=== PATIENT | male | born 1945 | race Caucasian/White ===

== ENCOUNTER 2016-07-26 07:27 | Inpatient (IN) | payer MEDICARE, OTHER ==
[2016-07-26] MEDS ORDERED: IPRATROPIUM/ALBUTEROL 0.5-2.5 MG/3 ML AMPUL NEB ONE ×3 (08:57→08:58)
[2016-07-26] MEDS ORDERED: METHYLPREDNISOLONE INJ 125 MG/2 ML SDV IV ONE (08:58)
[2016-07-26 09:22] LABS: PROTHROMBIN TIME 14.6 SEC (11.4-15.4)
[2016-07-26 09:25] LABS: VENOUS BLOOD BASE EXCESS 3.3 mmol/L; VENOUS BLOOD HCO3 27.8 mmol/L (20-32); VENOUS BLOOD PCO2 41.7 mmHg (35-63); VENOUS BLOOD PH 7.44 (7.30-7.42)
[2016-07-26 09:30] LABS: BLOOD UREA NITROGEN 15 mg/dL (7-20); CALCIUM 9.2 mg/dL (8.4-10.2); CREATININE RESULT 0.61 mg/dL (0.52-1.25); GLUCOSE 252 mg/dL (75-110)
[2016-07-26 09:31] LABS: ALANINE AMINOTRANSFERASE 61 U/L (21-72); ALKALINE PHOSPHATASE 106 U/L (38-126); ANION GAP 12 (5-19); ASPARTATE AMINO TRANSFERASE 58 U/L (17-59); BILIRUBIN,DIRECT 0.4 mg/dL (0.0-0.4); BILIRUBIN,TOTAL 1.3 mg/dL (0.2-1.3); CARBON DIOXIDE 27 mmol/L (22-30); CHLORIDE 97 mmol/L (98-107); POTASSIUM 4.7 mmol/L (3.6-5.0); TOTAL PROTEIN 7.4 g/dL (6.3-8.2)
--- NOTE | 2016-07-26 09:51 | RADIOLOGY REPORT (SQ) ---
EXAM DESCRIPTION: CHEST SINGLE VIEW COMPLETED DATE/TIME: 07/26/2016 9:30 am REASON FOR STUDY: productive cough , sob COMPARISON: Chest CT scan dated November 2009 EXAM PARAMETERS: NUMBER OF VIEWS: One view. TECHNIQUE: Single frontal radiographic view of the chest acquired. RADIATION DOSE: NA LIMITATIONS: None. FINDINGS: LUNGS AND PLEURA: There is some ill-defined increased density in the right lower lung fiel d which may only be related to overlying soft tissues however I cannot exclude a minimal infiltrate. Remaining lung brown are clear. No pleural effusions are identified. MEDIASTINUM AND HILAR STRUCTURES: No masses. Contour normal. HEART AND VASCULAR STRUCTURES: Heart normal in size. Normal vasculature. BONES: No acute findings. HARDWARE: None in the chest. OTHER: No other significant finding. IMPRESSION: Ill-defined increased density in the right lower lung field as noted above which may onl y be related to overlying soft tissues however I cannot exclude a minimal infiltrate. Remaining lung brown are clear. Other findings as noted above TECHNICAL DOCUMENTATION: JOB ID: [id number]
--- NOTE | 2016-07-26 09:52 | EKG REPORT ---
SEVERITY:- ABNORMAL ECG - SINUS RHYTHM RBBB AND LAFB : Confirmed by: Sveta Whitlock 26-Jul-2016 09:51:47
[2016-07-26] MEDS ORDERED: LEVOFLOXACIN 500 MG/D5W RTU 100 ML IV ONE (10:03)
[2016-07-26 10:13] LABS: ABSOLUTE EOSINOPHILS # (AUTO) 0.2 10^3/uL (0.0-0.6); ABSOLUTE LYMPHOCYTES (AUTO) 0.6 10^3/uL (0.5-4.7); ABSOLUTE MONOCYTES (AUTO) 0.4 10^3/uL (0.1-1.4); ABSOLUTE NEUT (AUTO) 2.8 10^3/uL (1.7-8.2); BASOPHILS % (AUTO) 0.4 % (0-2); EOSINOPHILS % (AUTO) 4.2 % (0-6); HEMATOCRIT 43.2 % (37.9-51.0); HEMOGLOBIN 14.4 g/dL (13.5-17.0); LYMPHOCYTES % (AUTO) 14.2 % (13-45); MEAN CORPUSCULAR HEMOGLOBIN 29.6 pg (27.0-33.4); MEAN CORPUSCULAR HGB CONC 33.4 g/dL (32.0-36.0); MEAN CORPUSCULAR VOLUME 89 fl (80-97); MONOCYTES % (AUTO) 9.2 % (3-13); RED BLOOD COUNT 4.88 10^6/uL (4.35-5.55); RED CELL DISTRIBUTION WIDTH 14.8 % (11.5-14.0); WHITE BLOOD COUNT 3.9 10^3/uL (4.0-10.5)
--- NOTE | 2016-07-26 10:24 | ER Document Report ---
ED General - General Chief Complaint: Breathing Difficulty Stated Complaint: SHORTNESS OF BREATH Time Seen by Provider: 07/26/16 08:26 Mode of Arrival: Ambulatory Information source: Patient Notes: 71-year-old male history of COPD presents with complaints of shortness of breath over the past week with productive thick yellow greenish sputum. Patient states he cannot walk more than a few steps because before he becomes tired TRAVEL OUTSIDE OF THE [place] IN LAST 30 DAYS: No - HPI Onset: Last week Onset/Duration: Persistent Quality of pain: Achy Severity: Mild Pain Level: 1 Associated symptoms: Productive cough, Fever, Shortness of breath Exacerbated by: Walking, Coughing Relieved by: Denies Similar symptoms previously: Yes Recently seen / treated by doctor: Yes - Related Data Allergies/Adverse Reactions: No Known Allergies Allergy (Verified 07/26/16 07:37) Past Medical History - Social History Smoking Status: Former Smoker Cigarette use (# per day): No Chew tobacco use (# tins/day): No Smoking Education Provided: No Frequency of alcohol use: None Drug Abuse: None Family History: Reviewed & Not Pertinent Patient has suicidal ideation: No Patient has homicidal ideation: No - Past Medical History Cardiac Medical History: Reports: Hx Hypertension Pulmonary Medical History: Reports: Hx Bronchitis, Hx COPD, Hx Pneumonia Endocrine Medical History: Reports: Hx Diabetes Mellitus Type 2 Renal/ Medical History: Denies: Hx Peritoneal Dialysis - Immunizations Hx Diphtheria, Pertussis, Tetanus Vaccination: Yes Review of Systems - Review of Systems Notes: REVIEW OF SYSTEMS: CONSTITUTIONAL : Denies fever, chills, or sweats. Denies recent illness. EENT: Denies eye, ear, throat, or mouth pain or symptoms. Denies nasal or sinus congestion or discharge. Denies throat, tongue, or mouth swelling or difficulty swallowing. CARDIOVASCULAR: Denies chest pain. Denies palpitations or racing or irregular heart beat. Denies ankle edema. RESPIRATORY: productive cough shortness of breath GASTROINTESTINAL: Denies abdominal pain or distention. Denies nausea, vomiting , or diarrhea. Denies blood in vomitus, stools, or per rectum. Denies black, tarry stools. Denies constipation. GENITOURINARY: Denies difficulty urinating, painful urination, burning, frequency, blood in urine, or discharge. MUSCULOSKELETAL: Denies back or neck pain or stiffness. Denies joint pain or swelling. SKIN: Denies rash, lesions or sores. HEMATOLOGIC : Denies easy bruising or bleeding. LYMPHATIC: Denies swollen, enlarged glands. NEUROLOGICAL: Denies confusion or altered mental status. Denies passing out or loss of consciousness. Denies dizziness or lightheadedness. Denies headache. Denies weakness or paralysis or loss of use of either side. Denies problems with gait or speech. Denies sensory loss, numbness, or tingling. Denies seizures. PSYCHIATRIC: Denies anxiety or stress. Denies depression, suicidal ideation, or homicidal ideation. ALL OTHER SYSTEMS REVIEWED AND NEGATIVE. Dictation was performed using [email or web address] voice recognition software PHYSICAL EXAMINATION: GENERAL: Well-appearing, well-nourished and in no acute distress. HEAD: Atraumatic, normocephalic. EYES: Pupils equal round and reactive to light, extraocular movements intact, sclera anicteric, conjunctiva are normal. ENT: Nares patent, oropharynx clear without exudates. Moist mucous membranes. NECK: Normal range of motion, supple without lymphadenopathy LUNGS: Coarse rhonchi at the right base wheezing all throughout HEART: Regular rate and rhythm without murmurs ABDOMEN: Soft, nontender, nondistended abdomen. No guarding, no rebound. No masses appreciated. Musculoskeletal: Normal range of motion, no pitting or edema. No cyanosis. NEUROLOGICAL: Cranial nerves grossly intact. Normal speech, normal gait. Normal sensory, motor exams PSYCH: Normal mood, normal affect. SKIN: Warm, Dry, normal turgor, no rashes or lesions noted. Physical Exam - Vital signs Vitals: Temp Pulse Resp BP Pulse Ox 98.8 F 96 24 H 147/72 H 94 07/26/16 07:37 07/26/16 07:37 07/26/16 07:37 07/26/16 07:37 07/26/16 07:37 Course - Re-evaluation Re-evalutation: 07/26/16 10:23 RLL infiltrate noted, pt is on o2, cant ambulate without becoming hypoxic - Vital Signs Vital signs: Temp Pulse Resp BP Pulse Ox 98.8 F 96 16 134/74 H 96 07/26/16 07:37 07/26/16 07:37 07/26/16 10:01 07/26/16 10:01 07/26/16 10:01 - Laboratory Result Diagrams: 07/26/16 08:51 07/26/16 08:51 Laboratory results interpreted by me: 07/26/16 07/26/16 08:51 09:04 VBG pH 7.44 H Sodium 136.0 L Chloride 97 L Glucose 252 H
[2016-07-26 12:47] LABS: APPEARANCE,URINE CLEAR; BILIRUBIN,URINE NEGATIVE (NEGATIVE); GLUCOSE, URINE 50 mg/dL (NEGATIVE); KETONES,URINE NEGATIVE (NEGATIVE); LEUKOCYTE ESTERASE,URINE NEGATIVE (NEGATIVE); NITRITE,URINE NEGATIVE (NEGATIVE); PROTEIN,URINE NEGATIVE (NEGATIVE); URINE SPECIFIC GRAVITY 1.021
[2016-07-26] MEDS ORDERED: GLUCAGON,HUMAN RECOMB 1 MG INJ IM PRN (16:49)
[2016-07-26] MEDS ORDERED: DEXTROSE 40% GEL 15 GM TUBE PO PRN ×2 (16:49)
[2016-07-26] MEDS ORDERED: DEXTROSE 50%-WATER 25 GM/50 ML DISP.SYRIN IV PRN ×2 (16:49)
--- NOTE | 2016-07-26 17:05 | PDOC H&P ---
History of Present Illness Admission Date/PCP: 07/26/16 13:02 LISSY COSTA MD Patient complains of: 5d dyspnea History of Present Illness: CLARKE LEW is a 71 year old male with 22py smoking history who quit in 1983. 4m ago fev1 was 63%. Advair helped. Now 5d productive cough wheeze regalado pleruritic pain fever 100deg. ER started him on levaquin for RLL infiltrate. Past Medical History Cardiac Medical History: Reports: Hyperlipidema Pulmonary Medical History: Reports: Bronchitis, Chronic Obstructive Pulmonary Disease (COPD), Pneumonia EENT Medical History: Reports: Nose - allergic rhinitis Neurological Medical History: Reports: Other - diabetic neuropathy Endocrine Medical History: Reports: Diabetes Mellitus Type 2 Renal/ Medical History: Reports: Other - hesitancy urge incontinence Malignancy Medical History: Reports: None GI Medical History: Reports: Cirrhosis - fatty Musculoskeltal Medical History: Reports: Arthritis - fibromyalgia low back pain Lrotator cuff Skin Medical History: Reports: Other - stasis dermatitis 1997 prurigo Rleg Psychiatric Medical History: Reports: None Traumatic Medical History: Reports: None Hematology: Reports: None Infectious Medical History: Reports: None Past Surgical History Past Surgical History: Reports: Orthopedic Surgery - Linh Dupont Social History Information Source: Dr. Noriega Lives with: Family Smoking Status: Former Smoker Last Time Smoked: 1983 Frequency of Alcohol Use: None Hx Recreational Drug Use: No Hx Prescription Drug Abuse: No - Advance Directive Resuscitation Status: Full Code Family History Family History: DM, Hypertension, Malignancy Parental Family History Reviewed: Yes Children Family History Reviewed: Yes Sibling(s) Family History Reviewed.: Yes Medication/Allergy Home Medications: Albuterol Sulfate [Ventolin Hfa] 1 - 2 puff IH Q4 PRN 07/26/16 Duloxetine HCl [Cymbalta] 60 mg PO DAILY 07/26/16 Finasteride [Proscar] 5 mg PO DAILY 07/26/16 Fluticasone/Salmeterol [Advair 250-50 Diskus 28 dose] 1 inh IH Q12H 07/26/16 Furosemide [Lasix] 40 mg PO BID 07/26/16 Gabapentin [Neurontin 300 mg Capsule] 300 mg PO Q8 07/26/16 Glimepiride [Amaryl 4 mg Tablet] 4 mg PO DAILY 07/26/16 Hydromorphone HCl [Dilaudid] 8 mg PO QID 07/26/16 Insulin Degludec [Tresiba Flextouch U-100] 80 unit SQ QHS 07/26/16 Montelukast Sodium [Singulair] 10 mg PO QHS 07/26/16 Polyethylene Glycol 3350 [Miralax Powder 17 gm/Packet] 17 gm PO DAILY 07/26/16 Pravastatin Sodium [Pravachol] 80 mg PO QHS 07/26/16 Ursodiol 250 mg PO BID 07/26/16 Allergies/Adverse Reactions: No Known Allergies Allergy (Verified 07/26/16 07:37) Review of Systems Constitutional: PRESENT: fever(s), headache(s). ABSENT: weight loss Nose, Mouth, and Throat: ABSENT: sore throat Cardiovascular: PRESENT: chest pain, dyspnea on exertion, orthropnea Respiratory: PRESENT: cough, sputum Gastrointestinal: PRESENT: abdominal pain, diarrhea. ABSENT: hematochezia, melena, vomiting Genitourinary: ABSENT: dysuria, hematuria Musculoskeletal: PRESENT: back pain Physical Exam Vital Signs: Temp Pulse Resp BP Pulse Ox 99.0 F 96 16 144/71 H 96 07/26/16 16:11 07/26/16 07:37 07/26/16 15:01 07/26/16 15:01 07/26/16 15:01 General appearance: PRESENT: mild distress Mouth exam: PRESENT: moist, neck supple, tongue midline Neck exam: ABSENT: lymphadenopathy, tenderness, thyromegaly, tracheal deviation Respiratory exam: PRESENT: prolonged expiratory phas, rhonchi, wheezes. ABSENT : crackles Cardiovascular exam: ABSENT: diastolic murmur, irregular rhythm, systolic murmur GI/Abdominal exam: PRESENT: distended. ABSENT: mass, organolmegaly, tenderness Extremities exam: PRESENT: pedal edema - trace Neurological exam: PRESENT: oriented to situation Psychiatric exam: PRESENT: appropriate affect Results Laboratory Results: Abnormal - 24 hr 07/26/16 07/26/16 07/26/16 08:51 09:04 09:40 WBC 3.9 L RDW 14.8 H Plt Count 96 L VBG pH 7.44 H Sodium 136.0 L Chloride 97 L Glucose 252 H Urine Glucose (UA) Urine Urobilinogen 07/26/16 12:00 WBC RDW Plt Count VBG pH Sodium Chloride Glucose Urine Glucose (UA) 50 H Urine Urobilinogen 4.0 H Impressions: Chest X-Ray 07/26/16 08:57 IMPRESSION: Ill-defined increased density in the right lower lung field as noted above which may only be related to overlying soft tissues however I cannot exclude a minimal infiltrate. Remaining lung brown are clear. 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 Is this a current diagnosis for this admission?: YesPlan: sliding scale for now (3) COPD (chronic obstructive pulmonary disease) Qualifiers: COPD type: chronic bronchitis Chronic bronchitis type: mucopurulent Qualified Code(s): J41.1 - Mucopurulent chronic bronchitis Is this a current diagnosis for this admission?: YesPlan: prednisone (4) Fatty liver disease, nonalcoholic Is this a current diagnosis for this admission?: YesPlan: famotidine - Time Time Spent: 30 to 50 Minutes Medications reviewed and adjusted accordingly: Yes Anticipated discharge: Home Within: Other - Inpatient Certification Medical Necessity: Significant Comorbidiites Make Outpatient Treatment Too Risky , Need Close Monitoring Due to Risk of Patient Decompensation, Need For Continuous Telemetry Monitoring, Need for Pain Control, Need for IV Antibiotics , Risk of Complication if Not Cared For in Hospital
[2016-07-26] MEDS ORDERED: ENOXAPARIN SODIUM INJ 40 MG/0.4 ML DISP.SYRIN SUBCUT ONE (18:00)
[2016-07-26] MEDS: PREDNISONE 20 MG TABLET PO SCH (18:52)
[2016-07-26] MEDS: TIOTROPIUM BROMIDE DPI 5 CAP/KIT (18 MCG/CAP) IH SCH (18:55)
[2016-07-26] MEDS: CEFTRIAXONE 1 GM/D5W RTU 1 GM/50 ML RTUPB IV SCH (18:56)
[2016-07-26] MEDS ORDERED: ALBUTEROL SULFATE HFA (90 MCG/PUFF) 8 GM MDI (1 MDI/ER DISP) IH PRN (20:26)
[2016-07-26] MEDS ORDERED: HYDROMORPHONE HCL 2 MG TABLET PO ONE (20:30)
[2016-07-26] MEDS ORDERED: ALBUTEROL SULFATE HFA (90 MCG/PUFF) 200 PUFF/8.5 GM MDI IH PRN (20:45)
[2016-07-26] MEDS: ATORVASTATIN CALCIUM 20 MG TABLET PO SCH (21:08)
[2016-07-26] MEDS: GABAPENTIN 300 MG CAPSULE PO SCH (21:08)
[2016-07-26] MEDS: FAMOTIDINE 20 MG TABLET PO SCH (21:08)
[2016-07-26] MEDS: MONTELUKAST SODIUM 10 MG TABLET PO SCH (21:08)
[2016-07-26] MEDS ORDERED: INSULIN DEGLUDEC 80 UNIT SQ SCH (22:00)
[2016-07-26] MEDS ORDERED: (PENDING PHARMACY ID) (Hydromorphone Hcl [Dilaudid] 8 MG) PO SCH (22:00)
[2016-07-26] MEDS: FLUTICASONE/SALMETEROL DISKUS 250-50 MCG/DOSE IH SCH (22:16)
[2016-07-26] MEDS: INSULIN REG, HUMAN 100 UNIT/ML 3 ML VIAL (PYX) SUBCUT PRN (22:16)
[2016-07-27] MEDS: HYDROMORPHONE HCL 2 MG TABLET PO SCH ×4 (03:00→17:37)
[2016-07-27] MEDS: GABAPENTIN 300 MG CAPSULE PO SCH ×3 (05:49→21:44)
--- NOTE | 2016-07-27 07:28 | PDOC PROGRESS REPORT ---
Subjective Progress Note for:: 07/27/16 Subjective:: some better Physical Exam Vital Signs: Temp Pulse Resp BP Pulse Ox 98.1 F 83 20 148/65 H 96 07/27/16 00:00 07/27/16 02:00 07/27/16 00:00 07/27/16 00:00 07/27/16 00:00 Intake & Output 07/25/16 07/26/16 07/27/16 07:59 07:59 07:59 Intake Total 871 Balance 871 Weight 276 lb 10.882 oz General appearance: PRESENT: no acute distress Respiratory exam: PRESENT: wheezes Cardiovascular exam: ABSENT: diastolic murmur, irregular rhythm, systolic murmur GI/Abdominal exam: ABSENT: mass, organolmegaly, tenderness Extremities exam: ABSENT: pedal edema Neurological exam: PRESENT: oriented to situation Psychiatric exam: PRESENT: appropriate affect Results Impressions: Chest X-Ray 07/26/16 08:57 IMPRESSION: Ill-defined increased density in the right lower lung field as noted above which may only be related to overlying soft tissues however I cannot exclude a minimal infiltrate. Remaining lung brown are clear. Other findings as noted above Assessment & Plan - Diagnosis (1) RLL pneumonia Qualifiers: Pneumonia type: due to unspecified organism Qualified Code(s): J18.1 - Lobar pneumonia, unspecified organism Is this a current diagnosis for this admission?: YesPlan: continue antibiotics (2) Type 2 diabetes mellitus with diabetic polyneuropathy Qualifiers: Diabetes mellitus skilled nursing insulin use: with skilled nursing use Qualified Code(s): E11.42 - Type 2 diabetes mellitus with diabetic polyneuropathy Is this a current diagnosis for this admission?: YesPlan: lantus tonight. Tresiba nonformulary (3) COPD (chronic obstructive pulmonary disease) Qualifiers: COPD type: chronic bronchitis Chronic bronchitis type: mucopurulent Qualified Code(s): J41.1 - Mucopurulent chronic bronchitis Is this a current diagnosis for this admission?: Yes (4) Fatty liver disease, nonalcoholic Is this a current diagnosis for this admission?: Yes
[2016-07-27] MEDS: INSULIN REG, HUMAN 100 UNIT/ML 3 ML VIAL (PYX) SUBCUT PRN ×4 (07:52→21:54)
[2016-07-27] MEDS: ENOXAPARIN SODIUM INJ 40 MG/0.4 ML DISP.SYRIN SUBCUT SCH (07:56)
[2016-07-27] MEDS: DULOXETINE HCL 30 MG CAPSULE.DR PO SCH (09:18)
[2016-07-27] MEDS: POLYETHYLENE GLYCOL 3350 POWDER 17 GM/1 PACKET PO SCH (09:18)
[2016-07-27] MEDS: PREDNISONE 20 MG TABLET PO SCH ×2 (09:19→17:37)
[2016-07-27] MEDS: GLIMEPIRIDE 4 MG TABLET PO SCH (09:19)
[2016-07-27] MEDS: FINASTERIDE 5 MG TABLET PO SCH (09:19)
[2016-07-27] MEDS: FUROSEMIDE 40 MG TABLET PO SCH ×2 (09:19→17:38)
[2016-07-27] MEDS: FAMOTIDINE 20 MG TABLET PO SCH ×2 (09:19→21:44)
[2016-07-27] MEDS: LEVOFLOXACIN 750 MG/D5W RTU 150 ML IV SCH (09:20)
[2016-07-27] MEDS: URSODIOL 300 MG CAPSULE PO SCH ×2 (09:20→17:40)
[2016-07-27] MEDS: FLUTICASONE/SALMETEROL DISKUS 250-50 MCG/DOSE IH SCH ×2 (09:21→21:44)
--- NOTE | 2016-07-27 09:45 | Physician Advisory Note ---
Physician Advisor ProgressNote .: Pursuant to the plan for [facility], I have reviewed the medical record for this patient. Physician Advisor Statement: Nice documentation of DM-2 w/neuropathy, NICHOLS, etc. Possible documentation opportunities if attending agrees: 1. "RLL Pneumonia, suspect gram-negative type possible" [COPD, DM-2, using Levaquin w/Rocephin] - or if you suspect a different organism type, please state it. 2. "Acute exacerbation of COPD" 3. Medical necessity: "After initial tx, pt still unable to ambulate without becoming hypoxic for ED physician," "hemodynamically unstable all day 07/26", "On 07/27, pt continues to have ____ significantly different from baseline". - & Was pt's inability to walk > a few steps without fatigue a significant departure from his baseline status? - *Need explicit documentation of the good reason(s) attending has for keeping patient a 2nd MN tonight. 4. "chronic opioid dependence [due to ___]" 5. "Acute hyponatremia, likely due to ____" As always, if concerned about any unstable VS or abnormal labs, please comment on them - what bad things they might indicate, why they concern you - & note what doing about them. Please also document each day the potential clinical problems you are concerned could occur if pt not kept in hospital for tx at this time. (These points are joseph - if present in each note, attending's status decision should be sufficiently supported.) Discussion: 71yo male w/ chronic co-morbidities including COPD, HTN, HLD, DM-2 w/neuropathy , NICHOLS, chronic po Dilaudid - presented 6/12AM to ED w/SOB, thick yellow-greenish sputum, reported fevers of 100 degrees, pleuritic CP, abd pain, diarrhea, unable to walk more than a few steps before becoming tired, sx worsened by walking & coughing. (+) T98.8, HR 96, RR24, BP 147/72, WBC 3.9, plts 96, Na 136, glc 252, lactate 1.8, w/coarse rhonchi Rt base, wheezing, CXR w/RLL infiltrate. ED gave Solumedrol 125mg IV, 3 Duonebs in a row, did blood culture, & lactate level with concern for sepsis. ED attending's re-eval reports "Pt is on O2, can't ambulate without becoming hypoxic.". Despite this, pt still in "mild distress" per attending w/rhonchi, wheezing, prolonged expiratory phase, abd distension, trace pedal edema. Attending ordered IV Levaquin, Cetriaxone, Sputum culture, Tiotropium, Prednisone 20mg bid, Lantus, SSI, prn Albuterol, I/Os, telemetry monitoring, daily wts, VS q4h. Status: This 71yo Medicare pt came in with acute pneumonia on top of COPD w/exacerbation , showing new hypoxemia per ED documentation, borderline for dx of Acute Respiratory Failure, and meeting Sepsis-2 criteria with tachycardia, tachypnea, leukopenia, & thrombocytopenia, with borderline lactate level. Pt showed persistent tachycardia as high as 103 all day 07/26, with frequent tachypnea in the 20s on 6/12 AM, so he has not been hemodynamically stable. Tx & monitoring in inpatient hospital setting medically reasonable & necessary to protect pt's health, safety, & medical condition? Thanks for your help with documentation accuracy/specificity improvement! Miracle Klein MD [facility] Physician Advisor, Fellow of Hospital Medicine
[2016-07-27] MEDS ORDERED: URSODIOL 250 MG PO SCH (10:00)
[2016-07-27] MEDS: CEFTRIAXONE 1 GM/D5W RTU 1 GM/50 ML RTUPB IV SCH (17:39)
[2016-07-27] MEDS: TIOTROPIUM BROMIDE DPI 5 CAP/KIT (18 MCG/CAP) IH SCH (17:40)
[2016-07-27] MEDS: ATORVASTATIN CALCIUM 20 MG TABLET PO SCH (21:44)
[2016-07-27] MEDS: MONTELUKAST SODIUM 10 MG TABLET PO SCH (21:44)
[2016-07-27] MEDS: INSULIN GLARGINE,HUM.REC.ANLOG 300 UNIT/3 ML INSULN.PEN SUBCUT SCH (21:53)
[2016-07-28] MEDS: HYDROMORPHONE HCL 2 MG TABLET PO SCH ×4 (04:11→17:17)
[2016-07-28] MEDS: GABAPENTIN 300 MG CAPSULE PO SCH ×3 (06:29→21:43)
--- NOTE | 2016-07-28 08:02 | PDOC PROGRESS REPORT ---
Subjective Progress Note for:: 07/28/16 Subjective:: regalado walking to bath room. Not at baseline. Physical Exam Vital Signs: Temp Pulse Resp BP Pulse Ox 97.5 F 72 20 146/71 H 95 07/28/16 03:42 07/28/16 03:42 07/28/16 03:42 07/28/16 03:42 07/28/16 03:42 Intake & Output 07/26/16 07/27/16 07/28/16 07:59 07:59 07:59 Intake Total 871 2746 Balance 871 2746 Weight 276 lb 10.882 oz 275 lb 12.772 oz General appearance: PRESENT: no acute distress Respiratory exam: PRESENT: rhonchi, wheezes - bad wheeze. ABSENT: unlabored Cardiovascular exam: PRESENT: irregular rhythm - skips. ABSENT: diastolic murmur, systolic murmur, tachycardia GI/Abdominal exam: ABSENT: mass, organolmegaly, tenderness Extremities exam: ABSENT: pedal edema Neurological exam: PRESENT: oriented to situation Psychiatric exam: PRESENT: appropriate affect Results Laboratory Results: Abnormal - 24 hr 07/27/16 07/27/16 07/27/16 11:17 16:15 21:49 POC Glucose 254 H 337 H 281 H 07/28/16 06:27 POC Glucose 200 H Impressions: Chest X-Ray 07/26/16 08:57 IMPRESSION: Ill-defined increased density in the right lower lung field as noted above which may only be related to overlying soft tissues however I cannot exclude a minimal infiltrate. Remaining lung brown are clear. Other findings as noted above Assessment & Plan - Diagnosis (1) RLL pneumonia Qualifiers: Pneumonia type: due to unspecified organism Qualified Code(s): J18.1 - Lobar pneumonia, unspecified organism Is this a current diagnosis for this admission?: YesPlan: With dm suspect gram-. Continue ceftri & levaquin. Gram stain gram+ diplococci. Culture pending. (2) Chronic obstructive pulmonary disease with acute exacerbation Is this a current diagnosis for this admission?: YesPlan: 2d ago hypoxic walking in ER after 3nebs. Continue prednisone. Not ready for home because dyspnea not baseline. (3) Sepsis Qualifiers: Sepsis type: sepsis due to unspecified organism Qualified Code(s): A41.9 - Sepsis, unspecified organism Is this a current diagnosis for this admission?: YesPlan: 2d ago:[id number] [id number] [id number] (4) Type 2 diabetes mellitus with diabetic polyneuropathy Qualifiers: Diabetes mellitus senior living insulin use: with intermediate frame tender use Qualified Code(s): E11.42 - Type 2 diabetes mellitus with diabetic polyneuropathy Is this a current diagnosis for this admission?: YesPlan: little beter on [id number] (5) Fatty liver disease, nonalcoholic Is this a current diagnosis for this admission?: Yes (6) Acute hyponatremia Is this a current diagnosis for this admission?: YesPlan: suspect from furosemide & IADH (7) Low back pain Qualifiers: Chronicity: chronic Sciatica presence: with sciatica Sciatica laterality: sciatica of right side Is this a current diagnosis for this admission?: YesPlan: would rather be than give up tatianna 8qid - Inpatient Certification Medical Necessity: Need Close Monitoring Due to Risk of Patient Decompensation - suspect rapid return to ER if home today, Need for Pain Control, Need for IV Antibiotics
[2016-07-28] MEDS: ENOXAPARIN SODIUM INJ 40 MG/0.4 ML DISP.SYRIN SUBCUT SCH (08:29)
[2016-07-28] MEDS: LEVOFLOXACIN 750 MG/D5W RTU 150 ML IV SCH (10:21)
[2016-07-28] MEDS: POLYETHYLENE GLYCOL 3350 POWDER 17 GM/1 PACKET PO SCH (10:21)
[2016-07-28] MEDS: FLUTICASONE/SALMETEROL DISKUS 250-50 MCG/DOSE IH SCH ×2 (10:21→21:44)
[2016-07-28] MEDS: FINASTERIDE 5 MG TABLET PO SCH (10:22)
[2016-07-28] MEDS: FAMOTIDINE 20 MG TABLET PO SCH ×2 (10:23→21:40)
[2016-07-28] MEDS: GLIMEPIRIDE 4 MG TABLET PO SCH (10:23)
[2016-07-28] MEDS: URSODIOL 300 MG CAPSULE PO SCH ×2 (10:23→17:17)
[2016-07-28] MEDS: FUROSEMIDE 40 MG TABLET PO SCH ×2 (10:23→17:17)
[2016-07-28] MEDS: PREDNISONE 20 MG TABLET PO SCH ×2 (10:23→17:17)
[2016-07-28] MEDS: DULOXETINE HCL 30 MG CAPSULE.DR PO SCH (10:24)
[2016-07-28] MEDS: INSULIN REG, HUMAN 100 UNIT/ML 3 ML VIAL (PYX) SUBCUT PRN ×3 (12:30→21:43)
[2016-07-28] MEDS: TIOTROPIUM BROMIDE DPI 5 CAP/KIT (18 MCG/CAP) IH SCH (17:16)
[2016-07-28] MEDS: CEFTRIAXONE 1 GM/D5W RTU 1 GM/50 ML RTUPB IV SCH (17:17)
[2016-07-28] MEDS: MONTELUKAST SODIUM 10 MG TABLET PO SCH (21:40)
[2016-07-28] MEDS: INSULIN GLARGINE,HUM.REC.ANLOG 300 UNIT/3 ML INSULN.PEN SUBCUT SCH (21:42)
[2016-07-28] MEDS: ATORVASTATIN CALCIUM 20 MG TABLET PO SCH (21:43)
[2016-07-29] MEDS: HYDROMORPHONE HCL 2 MG TABLET PO SCH ×4 (01:02→17:44)
[2016-07-29] MEDS: GABAPENTIN 300 MG CAPSULE PO SCH ×3 (06:19→21:59)
--- NOTE | 2016-07-29 07:01 | PDOC PROGRESS REPORT ---
Subjective Progress Note for:: 07/29/16 Subjective:: slightly better. Still regalado walking to bath room. Not at baseline. Physical Exam Vital Signs: Temp Pulse Resp BP Pulse Ox 97.5 F 71 20 144/70 H 98 07/29/16 03:56 07/29/16 03:56 07/29/16 03:56 07/29/16 03:56 07/29/16 03:56 Intake & Output 07/27/16 07/28/16 07/29/16 07:59 07:59 07:59 Intake Total 871 2746 2003 Balance 871 2746 2003 Weight 276 lb 10.882 oz 275 lb 12.772 oz General appearance: PRESENT: no acute distress Respiratory exam: PRESENT: prolonged expiratory phas, wheezes - bad. ABSENT: crackles Cardiovascular exam: ABSENT: diastolic murmur, irregular rhythm, systolic murmur GI/Abdominal exam: ABSENT: mass, organolmegaly, tenderness Extremities exam: ABSENT: pedal edema Neurological exam: PRESENT: oriented to situation Psychiatric exam: PRESENT: appropriate affect Results Laboratory Results: Abnormal - 24 hr 07/28/16 07/28/16 07/28/16 11:46 16:21 21:38 POC Glucose 225 H 362 H 311 H 07/29/16 06:20 POC Glucose 143 H Impressions: Chest X-Ray 07/26/16 08:57 IMPRESSION: Ill-defined increased density in the right lower lung field as noted above which may only be related to overlying soft tissues however I cannot exclude a minimal infiltrate. Remaining lung brown are clear. Other findings as noted above Assessment & Plan - Diagnosis (1) RLL pneumonia Qualifiers: Pneumonia type: due to unspecified organism Qualified Code(s): J18.1 - Lobar pneumonia, unspecified organism Is this a current diagnosis for this admission?: YesPlan: sputum growing gram negative. 1 more day levaquin (2) Chronic obstructive pulmonary disease with acute exacerbation Is this a current diagnosis for this admission?: Yes (3) Sepsis Qualifiers: Sepsis type: sepsis due to unspecified organism Qualified Code(s): A41.9 - Sepsis, unspecified organism Is this a current diagnosis for this admission?: Yes (4) Type 2 diabetes mellitus with diabetic polyneuropathy Qualifiers: Diabetes mellitus fdc insulin use: with ferry terminal agent use Qualified Code(s): E11.42 - Type 2 diabetes mellitus with diabetic polyneuropathy Is this a current diagnosis for this admission?: YesPlan: stop glimepiride. Add humalog 25ac (5) Fatty liver disease, nonalcoholic Is this a current diagnosis for this admission?: Yes (6) Acute hyponatremia Is this a current diagnosis for this admission?: Yes (7) Low back pain Qualifiers: Chronicity: chronic Sciatica presence: with sciatica Sciatica laterality: sciatica of right side Is this a current diagnosis for this admission?: Yes
[2016-07-29] MEDS: ENOXAPARIN SODIUM INJ 40 MG/0.4 ML DISP.SYRIN SUBCUT SCH (10:46)
[2016-07-29] MEDS: INSULIN LISPRO 100 UNIT/ML 3 ML VIAL SUBCUT SCH ×3 (10:46→16:26)
[2016-07-29] MEDS: FUROSEMIDE 40 MG TABLET PO SCH ×2 (10:51→17:44)
[2016-07-29] MEDS: DULOXETINE HCL 30 MG CAPSULE.DR PO SCH (10:51)
[2016-07-29] MEDS: FINASTERIDE 5 MG TABLET PO SCH (10:52)
[2016-07-29] MEDS: FAMOTIDINE 20 MG TABLET PO SCH ×2 (10:52→21:59)
[2016-07-29] MEDS: LUBIPROSTONE 24 MCG CAPSULE PO SCH ×2 (10:52→17:45)
[2016-07-29] MEDS: FLUTICASONE/SALMETEROL DISKUS 250-50 MCG/DOSE IH SCH ×2 (10:52→21:59)
[2016-07-29] MEDS: PREDNISONE 20 MG TABLET PO SCH ×2 (10:52→17:44)
[2016-07-29] MEDS: URSODIOL 300 MG CAPSULE PO SCH ×2 (10:52→17:45)
[2016-07-29] MEDS: LEVOFLOXACIN 750 MG/D5W RTU 150 ML IV SCH (10:52)
[2016-07-29] MEDS: POLYETHYLENE GLYCOL 3350 POWDER 17 GM/1 PACKET PO SCH (10:53)
[2016-07-29] MEDS: CEFTRIAXONE 1 GM/D5W RTU 1 GM/50 ML RTUPB IV SCH (17:43)
[2016-07-29] MEDS: TIOTROPIUM BROMIDE DPI 5 CAP/KIT (18 MCG/CAP) IH SCH (17:43)
[2016-07-29] MEDS: INSULIN GLARGINE,HUM.REC.ANLOG 300 UNIT/3 ML INSULN.PEN SUBCUT SCH (21:58)
[2016-07-29] MEDS: MONTELUKAST SODIUM 10 MG TABLET PO SCH (21:59)
[2016-07-29] MEDS: ATORVASTATIN CALCIUM 20 MG TABLET PO SCH (21:59)
[2016-07-30] MEDS: HYDROMORPHONE HCL 2 MG TABLET PO SCH ×2 (03:30→06:21)
[2016-07-30] MEDS: GABAPENTIN 300 MG CAPSULE PO SCH (06:21)
--- NOTE | 2016-07-30 07:59 | PDOC DISCHARGE SUMMARY ---
General - Admit/Disc Date/PCP Admission Date/Primary Care Provider: 07/26/16 16:43 LISSY COSTA MD Discharge Date: 07/30/16 - Discharge Diagnosis (1) RLL pneumonia Is this a current diagnosis for this admission?: Yes (2) Chronic obstructive pulmonary disease with acute exacerbation Is this a current diagnosis for this admission?: Yes (3) Sepsis Is this a current diagnosis for this admission?: Yes (4) Type 2 diabetes mellitus with diabetic polyneuropathy Is this a current diagnosis for this admission?: Yes (5) Fatty liver disease, nonalcoholic Is this a current diagnosis for this admission?: Yes (6) Acute hyponatremia Is this a current diagnosis for this admission?: Yes (7) Low back pain Is this a current diagnosis for this admission?: Yes - Additional Information Resuscitation Status: Full Code Discharge Diet: Diabetic Discharge Activity: Activity As Tolerated Home Medications: Albuterol Sulfate [Ventolin Hfa] 1 puff IH Q4 PRN 07/26/16 Duloxetine HCl [Cymbalta] 60 mg PO DAILY 07/26/16 Finasteride [Proscar] 5 mg PO DAILY 07/26/16 Fluticasone/Salmeterol [Advair 250-50 Diskus 28 dose] 1 inh IH Q12 07/26/16 Furosemide [Lasix] 40 mg PO BID 07/26/16 Gabapentin [Neurontin 300 mg Capsule] 300 mg PO Q8 07/26/16 Hydromorphone HCl [Dilaudid] 8 mg PO QID 07/26/16 Insulin Degludec [Tresiba Flextouch U-100] 80 unit SQ QHS 07/26/16 Montelukast Sodium [Singulair] 10 mg PO QHS 07/26/16 Polyethylene Glycol 3350 [Miralax Powder 17 gm/Packet] 17 gm PO DAILY 07/26/16 Pravastatin Sodium [Pravachol] 80 mg PO QHS 07/26/16 Ursodiol 250 mg PO BID 07/26/16 Hydromorphone HCl [Dilaudid 2 mg Tablet] 8 mg PO Q6 #120 tablet 07/29/16 Insulin Lispro [Humalog Insulin (Lispro) 100 unit/mL] 25 unit SUBCUT AC #3000 unit 07/29/16 Lubiprostone [Amitiza 24 Mcg Capsule] 24 mcg PO BID #60 capsule 07/29/16 Tiotropium Maupin [Spiriva Handihaler 5 Cap/Kit (18 Mcg/Cap)] 1 cap IH QPM #30 kit 07/29/16 History of Present Illness Patient complains of: dyspnea History of Present Illness: CLARKE LEW is a 71 year old male with 22py smoking history who quit in 1983. 4m ago fev1 was 63%. Advair helped. Now 5d productive cough wheeze regalado pleruritic pain fever 100deg. ER started him on levaquin for RLL infiltrate. Hospital Course Hospital Course: dyspnea approaching baseline after 5d ceftri & levaquin & prednisone. Sputum grew Ecoli sensitive to all. He remained on advair for exacerbations. Humalog was added to meals. Dilaudid was continued for low back pain. Physical Exam Vital Signs: Temp Pulse Resp BP Pulse Ox 97.9 F 65 19 136/68 H 96 07/30/16 03:30 07/30/16 03:30 07/30/16 03:30 07/30/16 03:30 07/30/16 03:30 Intake & Output 07/28/16 07/29/16 07/30/16 07:59 07:59 07:59 Intake Total 2746 2003 2939 Balance 2746 2003 2939 Weight 275 lb 12.772 oz 275 lb 9.245 oz General appearance: PRESENT: no acute distress Respiratory exam: PRESENT: wheezes - now moderate as usual Cardiovascular exam: ABSENT: diastolic murmur, irregular rhythm, systolic murmur GI/Abdominal exam: ABSENT: mass, organolmegaly, tenderness Extremities exam: ABSENT: pedal edema Results Laboratory Results: 07/26/16 21:15 Sputum Gram Stain - Final 07/26/16 21:15 Sputum Sputum Culture - Final Escherichia Coli C.albicans/C.dubliniensis Reduced Normal [facility]- Last Values WBC 3.9 10^3/uL (4.0-10.5) L 07/26/16 09:40 RBC 4.88 10^6/uL (4.35-5.55) 07/26/16 09:40 Hgb 14.4 g/dL (13.5-17.0) 07/26/16 09:40 Hct 43.2 % (37.9-51.0) 07/26/16 09:40 MCV 89 fl (80-97) 07/26/16 09:40 MCH 29.6 pg (27.0-33.4) 07/26/16 09:40 MCHC 33.4 g/dL (32.0-36.0) 07/26/16 09:40 RDW 14.8 % (11.5-14.0) H 07/26/16 09:40 Plt Count 96 10^3/uL (150-450) L 07/26/16 09:40 Seg Neutrophils % 72.0 % (42-78) 07/26/16 09:40 Lymphocytes % 14.2 % (13-45) 07/26/16 09:40 Monocytes % 9.2 % (3-13) 07/26/16 09:40 Eosinophils % 4.2 % (0-6) 07/26/16 09:40 Basophils % 0.4 % (0-2) 07/26/16 09:40 Absolute Neutrophils 2.8 10^3/uL (1.7-8.2) 07/26/16 09:40 Absolute Lymphocytes 0.6 10^3/uL (0.5-4.7) 07/26/16 09:40 Absolute Monocytes 0.4 10^3/uL (0.1-1.4) 07/26/16 09:40 Absolute Eosinophils 0.2 10^3/uL (0.0-0.6) 07/26/16 09:40 Absolute Basophils 0.0 10^3/uL (0.0-0.2) 07/26/16 09:40 Platelet Estimate Cancelled 07/26/16 08:51 PT 14.6 SEC (11.4-15.4) 07/26/16 08:51 INR 1.07 07/26/16 08:51 VBG pH 7.44 (7.30-7.42) H 07/26/16 09:04 VBG pCO2 41.7 mmHg (35-63) 07/26/16 09:04 VBG HCO3 27.8 mmol/L (20-32) 07/26/16 09:04 VBG Base Excess 3.3 mmol/L 07/26/16 09:04 Sodium 136.0 mmol/L (137-145) L 07/26/16 08:51 Potassium 4.7 mmol/L (3.6-5.0) 07/26/16 08:51 Chloride 97 mmol/L (98-107) L 07/26/16 08:51 Carbon Dioxide 27 mmol/L (22-30) 07/26/16 08:51 Anion Gap 12 (5-19) 07/26/16 08:51 BUN 15 mg/dL (7-20) 07/26/16 08:51 Creatinine 0.61 mg/dL (0.52-1.25) 07/26/16 08:51 Est GFR ( Amer) > 60 (>60) 07/26/16 08:51 Est GFR (Non-Af Amer) > 60 (>60) 07/26/16 08:51 Glucose 252 mg/dL (75-110) H 07/26/16 08:51 POC Glucose 201 mg/dL (70-110) H 07/30/16 06:19 Lactic Acid 1.8 mmol/L (0.7-2.1) 07/26/16 08:51 Calcium 9.2 mg/dL (8.4-10.2) 07/26/16 08:51 Total Bilirubin 1.3 mg/dL (0.2-1.3) 07/26/16 08:51 Direct Bilirubin 0.4 mg/dL (0.0-0.4) 07/26/16 08:51 Indirect Bilirubin Not Reportable 07/26/16 08:51 Neonat Total Bilirubin Not Reportable 07/26/16 08:51 AST 58 U/L (17-59) 07/26/16 08:51 ALT 61 U/L (21-72) 07/26/16 08:51 Alkaline Phosphatase 106 U/L (38-126) 07/26/16 08:51 Total Protein 7.4 g/dL (6.3-8.2) 07/26/16 08:51 Albumin 4.0 g/dL (3.5-5.0) 07/26/16 08:51 Urine Color YELLOW 07/26/16 12:00 Urine Appearance CLEAR 07/26/16 12:00 Urine pH 6.0 (5.0-9.0) 07/26/16 12:00 Ur Specific [place] 1.021 07/26/16 12:00 Urine Protein NEGATIVE mg/dL (NEGATIVE) 07/26/16 12:00 Urine Glucose (UA) 50 mg/dL (NEGATIVE) H 07/26/16 12:00 Urine Ketones NEGATIVE mg/dL (NEGATIVE) 07/26/16 12:00 Urine Blood NEGATIVE (NEGATIVE) 07/26/16 12:00 Urine Nitrite NEGATIVE (NEGATIVE) 07/26/16 12:00 Urine Bilirubin NEGATIVE (NEGATIVE) 07/26/16 12:00 Urine Urobilinogen 4.0 mg/dL (<2.0) H 07/26/16 12:00 Ur Leukocyte Esterase NEGATIVE (NEGATIVE) 07/26/16 12:00 Urine WBC (Auto) 2 /HPF 07/26/16 12:00 Urine RBC (Auto) 2 /HPF 07/26/16 12:00 Squamous Epi Cells Auto <1 /HPF 07/26/16 12:00 Urine Mucus (Auto) RARE /LPF 07/26/16 12:00 Urine Ascorbic Acid NEGATIVE (NEGATIVE) 07/26/16 12:00 Slides for Path Review Cancelled 07/26/16 08:51 Impressions: Chest X-Ray 07/26/16 08:57 IMPRESSION: Ill-defined increased density in the right lower lung field as noted above which may only be related to overlying soft tissues however I cannot exclude a minimal infiltrate. Remaining lung brown are clear. Other findings as noted above Qualifiers PATEINT BEING DISCHARGED WITH ANY OF THE FOLLOWING DIAGNOSIS?: No Plan Discharge Plan: home. OV 11d
[2016-07-30] MEDS: ENOXAPARIN SODIUM INJ 40 MG/0.4 ML DISP.SYRIN SUBCUT SCH (08:18)
[2016-07-30] MEDS: INSULIN LISPRO 100 UNIT/ML 3 ML VIAL SUBCUT SCH (08:27)
[2016-07-30] MEDS: POLYETHYLENE GLYCOL 3350 POWDER 17 GM/1 PACKET PO SCH (09:42)
[2016-07-30] MEDS: FUROSEMIDE 40 MG TABLET PO SCH (09:43)
[2016-07-30] MEDS: FAMOTIDINE 20 MG TABLET PO SCH (09:43)
[2016-07-30] MEDS: FINASTERIDE 5 MG TABLET PO SCH (09:43)
[2016-07-30] MEDS: DULOXETINE HCL 30 MG CAPSULE.DR PO SCH (09:43)
[2016-07-30] MEDS: LUBIPROSTONE 24 MCG CAPSULE PO SCH (09:44)
[2016-07-30] MEDS: FLUTICASONE/SALMETEROL DISKUS 250-50 MCG/DOSE IH SCH (09:44)
[2016-07-30] MEDS: PREDNISONE 20 MG TABLET PO SCH (09:44)
[2016-07-30] MEDS: URSODIOL 300 MG CAPSULE PO SCH (09:44)
[2016-07-30] MEDS: LEVOFLOXACIN 750 MG/D5W RTU 150 ML IV SCH (09:45)
[2016-07-30 09:59] VITALS: BP 144/70
== END 2016-07-30 12:08 | disposition home or self-care (01) | DRG 871 ==
LOC: ER 07:27 → EH 13:02 → UNDOADMIN 13:02 → EH 16:43 → 5 17:03 → EH 17:03
PROVIDERS: ADMIT Family Medicine; ATTEND Family Medicine
DX: A41.9 Sepsis, unspecified organism (principal); J18.1 Lobar pneumonia, unspecified organism; J44.0 Chronic obstructive pulmonary disease with (acute) lower respiratory infection; J44.1 Chronic obstructive pulmonary disease with (acute) exacerbation; E87.1 Hypo-osmolality and hyponatremia; E11.42 Type 2 diabetes mellitus with diabetic polyneuropathy; K76.0 Fatty (change of) liver, not elsewhere classified; M54.41 Lumbago with sciatica, right side; Z79.899 Other long term (current) drug therapy; Z79.4 Long term (current) use of insulin; Z87.891 Personal history of nicotine dependence
CPT/HCPCS: 36415; 71010; 80053; 81001; 82803; 82962; 83605; 85025; 85610; 87040; 87070; 87077; 87086; 87186; 87205; 93005; 93010; 94640; 96365; 96375; 99285; J0696; J1815; J1956; J2930; J3490; J7512; J7620

== ENCOUNTER → 2016-08-24 | Outpatient (CLI) | payer MEDICARE, OTHER ==
--- NOTE | 2016-08-24 11:46 | RADIOLOGY REPORT (SQ) ---
EXAM DESCRIPTION: CHEST PA/LAT COMPLETED DATE/TIME: 08/24/2016 11:19 am REASON FOR STUDY: LOBAR PNEUMONIA/FOLLOW UP COMPARISON: 09/07/2007 EXAM PARAMETERS: NUMBER OF VIEWS: two views TECHNIQUE: Digital Frontal and Lateral radiographic views of the chest acquired. RADIATION DOSE: NA LIMITATIONS: none FINDINGS: LUNGS AND PLEURA: There is no consolidation or pleural effusion. Interstitial markings ar e prominent but grossly. MEDIASTINUM AND HILAR STRUCTURES: No masses or contour abnormalities. HEART AND VASCULAR STRUCTURES: Heart normal size. No evidence for failure. BONES: No acute findings. HARDWARE: None in the chest. OTHER: No other significant finding. IMPRESSION: Mild chronic interstitial changes. No acute findings. TECHNICAL DOCUMENTATION: JOB ID: [id number] [employer]- All Rights Reserved
== END ==
LOC: RAD 11:00
PROVIDERS: ATTEND Family Medicine
DX: J18.1 Lobar pneumonia, unspecified organism (principal)
CPT/HCPCS: 71020

== ENCOUNTER → 2016-09-08 | Outpatient (CLI) | payer MEDICARE, OTHER ==
--- NOTE | 2016-09-08 11:02 | RADIOLOGY REPORT (SQ) ---
EXAM DESCRIPTION: U/S ABDOMEN COMPLETE W/O DOP COMPLETED DATE/TIME: 09/08/2016 10:06 am REASON FOR STUDY: OTHER CIRRHOSIS OF LIVER K74.69 OTHER CIRRHOSIS OF LIVER R16.2 HEPATOMEGALY WITH SPLENOMEGALY, NOT ELSEWHERE CLASSIFI COMPARISON: None. TECHNIQUE: Dynamic and static grayscale images acquired of the abdomen and recorded on PACS. Additio nal selected color Doppler and spectral images recorded. LIMITATIONS: None. FINDINGS: PANCREAS: No masses. Visualized pancreatic duct normal caliber. LIVER: Nodular. It is mildly heterogeneous with diffuse increased echogenicity. Fatty liver and cir rhosis. No focal masses. LIVER VASCULATURE: Normal directional flow of the main portal vein and hepatic veins. GALLBLADDER: Distended. No stones. ULTRASOUND-DETECTED LAUGHLIN'S SIGN: Negative. INTRAHEPATIC DUCTS AND COMMON DUCT: CBD and intrahepatic ducts normal caliber. No filling defects. INFERIOR VENA CAVA: Normal flow. AORTA: No aneurysm. RIGHT KIDNEY: Normal size. Normal echogenicity. No solid or suspicious masses. No hydronephros is. No calcifications. LEFT KIDNEY: Normal size. Normal echogenicity. No solid or suspicious masses. No hydronephrosi s. No calcifications. SPLEEN: Splenomegaly. 18.8 cm. PERITONEAL AND PLEURAL SPACES: No ascites or effusions. OTHER: No other significant finding. IMPRESSION: Cirrhotic liver with fatty infiltration. Splenomegaly. Distended gallbladder without stones. TECHNICAL DOCUMENTATION: JOB ID: [id number]- All Rights Reserved
== END ==
LOC: RAD 09:26
PROVIDERS: ATTEND Internal Medicine Gastroenterology
DX: K74.69 Other cirrhosis of liver (principal); R16.2 Hepatomegaly with splenomegaly, not elsewhere classified
CPT/HCPCS: 76700

== ENCOUNTER 2016-11-18 16:43 | Emergency (ER) | payer MEDICARE, OTHER ==
--- NOTE | 2016-11-18 17:10 | ER Document Report ---
ED Medical Screen (RME) - General Chief Complaint: Hemorrhoids Stated Complaint: POSSIBLE RECTAL BLEEDING Time Seen by Provider: 11/18/16 17:08 Mode of Arrival: Ambulatory Information source: Patient Notes: 71-year-old male history of hemorrhoids surgery 2 months ago presents with complaints of continued bleeding. Daily sense. Patient notes he is spoke with Dr. Kaiser I have greeted and performed a rapid initial assessment of this patient. A comprehensive ED assessment and evaluation of the patient, analysis of test results and completion of the medical decision making process will be conducted by additional ED providers. PHYSICAL EXAMINATION: GENERAL: Well-appearing, well-nourished and in no acute distress. HEAD: Atraumatic, normocephalic. EYES: Pupils equal round extraocular movements intact, conjunctiva are normal. ENT: Nares patent NECK: Normal range of motion LUNGS: No respiratory distress Musculoskeletal: Normal range of motion NEUROLOGICAL: Normal speech, normal gait. PSYCH: Normal mood, normal affect. SKIN: Warm, Dry, normal turgor, no rashes or lesions noted. TRAVEL OUTSIDE OF THE [place] IN LAST 30 DAYS: No - Related Data Allergies/Adverse Reactions: No Known Allergies Allergy (Verified 07/26/16 07:37) Past Medical History - Past Medical History Cardiac Medical History: Reports: Hx Hypercholesterolemia, Hx Hypertension Pulmonary Medical History: Reports: Hx Bronchitis, Hx COPD, Hx Pneumonia Endocrine Medical History: Reports: Hx Diabetes Mellitus Type 2 Renal/ Medical History: Denies: Hx Peritoneal Dialysis GI Medical History: Reports: Hx Cirrhosis - fatty Musculoskeltal Medical History: Reports Hx Arthritis - fibromyalgia low back pain Lrotator cuff Psychiatric Medical History: Reports: Hx Depression Past Surgical History: Reports: Hx Orthopedic Surgery - Rknee orifLelbow - Immunizations Hx Diphtheria, Pertussis, Tetanus Vaccination: Yes
[2016-11-18 18:14] LABS: PROTHROMBIN TIME 14.4 SEC (11.4-15.4)
[2016-11-18 18:23] LABS: ALANINE AMINOTRANSFERASE 63 U/L (21-72); ALBUMIN 3.9 g/dL (3.5-5.0); ALKALINE PHOSPHATASE 112 U/L (38-126); ANION GAP 9 (5-19); ASPARTATE AMINO TRANSFERASE 62 U/L (17-59); BILIRUBIN,DIRECT 0.4 mg/dL (0.0-0.4); BILIRUBIN,TOTAL 0.7 mg/dL (0.2-1.3); BLOOD UREA NITROGEN 18 mg/dL (7-20); CALCIUM 9.6 mg/dL (8.4-10.2); CARBON DIOXIDE 27 mmol/L (22-30); CHLORIDE 96 mmol/L (98-107); CREATININE RESULT 0.67 mg/dL (0.52-1.25); POTASSIUM 4.3 mmol/L (3.6-5.0); SODIUM 132.2 mmol/L (137-145); TOTAL PROTEIN 6.9 g/dL (6.3-8.2)
[2016-11-18 18:35] LABS: GLUCOSE 435 mg/dL (75-110)
--- NOTE | 2016-11-18 19:00 | ER Document Report ---
ED General - General Chief Complaint: Hemorrhoids Stated Complaint: POSSIBLE RECTAL BLEEDING Time Seen by Provider: 11/18/16 17:08 Mode of Arrival: Ambulatory Notes: Patient is a 71-year-old male with a past medical history of nonalcoholic steatohepatitis is with associated liver failure who presents with 2 months of bright red bleeding per rectum. He was seen in Dr. Kaiser's office today for this ongoing bleeding which has been occurring ever since he had infrared ablation of internal hemorrhoids but did not have any resolution of the bleeding or any management plan so his [id number] contact the office and he was apparently instructed to come to the emergency department. Patient states that he is felt somewhat more lethargic in the last several months but denies any syncope, exertional dyspnea, or focal abdominal pain. He does not take any form of anticoagulation. He has no prior history of lower GI bleeds previous to the past 2 months. Nothing improves or worsens his symptoms. TRAVEL OUTSIDE OF THE [place] IN LAST 30 DAYS: No - Related Data Allergies/Adverse Reactions: No Known Allergies Allergy (Verified 07/26/16 07:37) Past Medical History - General Information source: Patient - Social History Smoking Status: Former Smoker Chew tobacco use (# tins/day): No Frequency of alcohol use: None Drug Abuse: None Lives with: Spouse/Significant other Family History: DM, Hypertension, Malignancy - Past Medical History Cardiac Medical History: Reports: Hx Hypercholesterolemia, Hx Hypertension Pulmonary Medical History: Reports: Hx Bronchitis, Hx COPD, Hx Pneumonia Endocrine Medical History: Reports: Hx Diabetes Mellitus Type 2 Renal/ Medical History: Denies: Hx Peritoneal Dialysis GI Medical History: Reports: Hx Cirrhosis - fatty Musculoskeltal Medical History: Reports Hx Arthritis - fibromyalgia low back pain Lrotator cuff Psychiatric Medical History: Reports: Hx Depression Past Surgical History: Reports: Hx Orthopedic Surgery - Rknee orifLelbow, Hx Rectal Surgery - hemorrhoidectomy - Immunizations Hx Diphtheria, Pertussis, Tetanus Vaccination: Yes Review of Systems - Review of Systems Notes: Constitutional: Negative for fever. HENT: Negative for sore throat. Eyes: Negative for visual changes. Cardiovascular: Negative for chest pain. Respiratory: Negative for shortness of breath. Gastrointestinal: Negative for abdominal pain, vomiting or diarrhea. Positive for rectal bleeding Genitourinary: Negative for dysuria. Musculoskeletal: Negative for back pain. Skin: Negative for rash. Neurological: Negative for headaches, weakness or numbness. 10 point ROS negative except as marked above and in HPI. Physical Exam - Vital signs Vitals: Temp Pulse Resp BP Pulse Ox 97.9 F 70 20 140/66 H 98 11/18/16 22:06 11/18/16 22:06 11/18/16 22:06 11/18/16 22:06 11/18/16 22:06 Interpretation: Normal Notes: PHYSICAL EXAMINATION: GENERAL: Well-appearing, well-nourished and in no acute distress. HEAD: Atraumatic, normocephalic. EYES: Pupils equal round and reactive to light, extraocular movements intact, sclera anicteric, conjunctiva are normal. ENT: nares patent, oropharynx clear without exudates. Moist mucous membranes. NECK: Normal range of motion, supple without lymphadenopathy LUNGS: Breath sounds clear to auscultation bilaterally and equal. No wheezes rales or rhonchi. HEART: Regular rate and rhythm without murmurs ABDOMEN: Soft, nontender, normoactive bowel sounds. No guarding, no rebound. No masses appreciated. Rectal: Brown stool, trace blood. No masses or lesions. EXTREMITIES: Normal range of motion, no pitting or edema. No cyanosis. NEUROLOGICAL: No focal neurological deficits. Moves all extremities spontaneously and on command. PSYCH: Normal mood, normal affect. SKIN: Warm, Dry, normal turgor, no rashes or lesions noted. Course - Re-evaluation Re-evalutation: 11/18/16 19:11 Patient presents with bright red blood per rectum for the past 2 months after having a hemorrhoid resection done by Dr. Kaiser. She was seen in the office today by the physician tax accounting assistant but apparently at that time no formal sigmoidoscopy or endoscope he was done to try to evaluate the source of the bleeding. He is apparently seen a total of 3 times in the office since having the procedure completed having ongoing rectal bleeding. The family contacted the office today after the patient went home due to the frustration about his ongoing bleeding and lack of resolution or what they felt to be appropriate workup and were then instructed to come to the emergency department on the behalf of Dr. feliberto Velazquez. Here in the emergency department the patient is somewhat tired in appearance but in no acute distress. No significant pallor on examination. Rectal examination does show brown stool with streaks of blood but no marilia bright red blood. I suspect the patient has been having a chronic slow bleed likely secondary to a hemorrhoidal source. Will check blood counts and I suspect plan for likely outpatient follow-up. 11/18/16 21:53 CBC does show mild thrombocytopenia but no evidence of acute anemia. I have discussed the results of laboratories with the patient and I did also contact who discussed the option of possibly calling the surgeon to evaluate the patient. This does not seem clinically indicated as patient is not anemic, hemodynamic is stable and I do not see an indication for an emergent surgical consultation for hemorrhoids in the emergency department. I did discuss this with the patient and his as well as his [id number] who all agree that they would rather follow this up as an outpatient and are planning to follow-up in [place] with a GI specialist there. At this time will discharge with return precautions and follow-up recommendations. Verbal discharge instructions given a the bedside and opportunity for questions given. Medication warnings reviewed. Patient is in agreement with this plan and has verbalized understanding of return precautions and the need for primary care follow-up in the next 24-72 hours. - Vital Signs Vital signs: Temp Pulse Resp BP Pulse Ox 97.9 F 70 20 140/66 H 98 11/18/16 22:06 11/18/16 22:06 11/18/16 22:06 11/18/16 22:06 11/18/16 22:06 - Laboratory Result Diagrams: 11/18/16 20:30 11/18/16 17:42 Laboratory results interpreted by me: 11/18/16 11/18/16 17:42 20:30 RDW 14.6 H Plt Count 76 L Eosinophils % 7.1 H Sodium 132.2 L Chloride 96 L Glucose 435 H* AST 62 H Discharge - Discharge Clinical Impression: Fatty liver disease, nonalcoholic, Rectal bleeding, Thrombocytopenia Condition: Good Disposition: HOME, SELF-CARE Additional Instructions: Please follow-up with a GI specialist as we discussed. Return to the [facility] department if you pass out, have worsening rectal bleeding, abdominal pain, vomiting blood, or have any other symptoms that are worrisome to you.
[2016-11-18 20:49] LABS: ABSOLUTE EOSINOPHILS # (AUTO) 0.4 10^3/uL (0.0-0.6); ABSOLUTE LYMPHOCYTES (AUTO) 1.6 10^3/uL (0.5-4.7); HEMATOCRIT 41.4 % (37.9-51.0); RED CELL DISTRIBUTION WIDTH 14.6 % (11.5-14.0)
[2016-11-18] MEDS ORDERED: INSULIN LISPRO 100 UNIT/ML 3 ML VIAL SUBCUT ONE (20:59)
[2016-11-18 21:10] LABS: ABSOLUTE MONOCYTES (AUTO) 0.6 10^3/uL (0.1-1.4); ABSOLUTE NEUT (AUTO) 2.7 10^3/uL (1.7-8.2); BASOPHILS % (AUTO) 0.6 % (0-2); EOSINOPHILS % (AUTO) 7.1 % (0-6); HEMOGLOBIN 14.3 g/dL (13.5-17.0); HGB HCT DIFFERENCE 1.5; MEAN CORPUSCULAR HEMOGLOBIN 30.2 pg (27.0-33.4); MEAN CORPUSCULAR HGB CONC 34.6 g/dL (32.0-36.0); MEAN CORPUSCULAR VOLUME 87 fl (80-97); MONOCYTES % (AUTO) 10.6 % (3-13); RED BLOOD COUNT 4.75 10^6/uL (4.35-5.55); SEGMENTED NEUTROPHILS % (AUTO) 51.7 % (42-78); WHITE BLOOD COUNT 5.2 10^3/uL (4.0-10.5)
[2016-11-18 22:07] VITALS: BP 140/66
== END 2016-11-18 22:06 | disposition home or self-care (01) ==
LOC: ER 16:43
DX: K76.0 Fatty (change of) liver, not elsewhere classified (principal); K62.5 Hemorrhage of anus and rectum; D69.6 Thrombocytopenia, unspecified; E78.00 Pure hypercholesterolemia, unspecified; I10 Essential (primary) hypertension; J44.9 Chronic obstructive pulmonary disease, unspecified; E11.9 Type 2 diabetes mellitus without complications
CPT/HCPCS: 99283; 36415; 85025; 85610; 80053; A9270; J1815

== ENCOUNTER 2017-02-08 10:51 | Emergency (ER) | payer MEDICARE, OTHER ==
[2017-02-08] MEDS ORDERED: IPRATROPIUM/ALBUTEROL 0.5-2.5 MG/3 ML AMPUL NEB ONE ×3 (12:02)
[2017-02-08] MEDS ORDERED: METHYLPREDNISOLONE INJ 125 MG/2 ML SDV IV ONE (12:02)
--- NOTE | 2017-02-08 12:03 | ER Document Report ---
ED Medical Screen (RME) - General Chief Complaint: Breathing Difficulty Stated Complaint: DIFFICULTY BREATHING Time Seen by Provider: 02/08/17 11:51 Mode of Arrival: Wheelchair Information source: Patient Notes: 71-year-old male history of COPD presents with 3 week duration productive greenish cough shortness of breath patient is supposed be on BiPAP does not wear it I have greeted and performed a rapid initial assessment of this patient. A comprehensive ED assessment and evaluation of the patient, analysis of test results and completion of the medical decision making process will be conducted by additional ED providers. PHYSICAL EXAMINATION: GENERAL: Well-appearing, well-nourished and in no acute distress. HEAD: Atraumatic, normocephalic. EYES: Pupils equal round extraocular movements intact, conjunctiva are normal. ENT: Nares patent NECK: Normal range of motion LUNGS: No respiratory distress Musculoskeletal: Normal range of motion NEUROLOGICAL: Normal speech, normal gait. PSYCH: Normal mood, normal affect. SKIN: Warm, Dry, normal turgor, no rashes or lesions noted. TRAVEL OUTSIDE OF THE [place] IN LAST 30 DAYS: No - Related Data Allergies/Adverse Reactions: No Known Allergies Allergy (Verified 02/08/17 10:52) Past Medical History - Social History Frequency of alcohol use: None Drug Abuse: None - Past Medical History Cardiac Medical History: Reports: Hx Hypercholesterolemia, Hx Hypertension Pulmonary Medical History: Reports: Hx Bronchitis, Hx COPD, Hx Pneumonia Endocrine Medical History: Reports: Hx Diabetes Mellitus Type 2 Renal/ Medical History: Denies: Hx Peritoneal Dialysis GI Medical History: Reports: Hx Cirrhosis - fatty Musculoskeltal Medical History: Reports Hx Arthritis - fibromyalgia low back pain Lrotator cuff Psychiatric Medical History: Reports: Hx Depression Past Surgical History: Reports: Hx Appendectomy, Hx Orthopedic Surgery - Rknee orifLelbow, Hx Rectal Surgery - hemorrhoidectomy - Immunizations Hx Diphtheria, Pertussis, Tetanus Vaccination: Yes Physical Exam - Vital signs Vitals: Temp Pulse Resp BP Pulse Ox 98.9 F 73 16 117/60 93 02/08/17 11:12 02/08/17 11:12 02/08/17 11:12 02/08/17 11:12 02/08/17 11:12 Course - Vital Signs Vital signs: Temp Pulse Resp BP Pulse Ox 98.9 F 73 16 117/60 93 02/08/17 11:12 02/08/17 11:12 02/08/17 11:12 02/08/17 11:12 02/08/17 11:12
[2017-02-08 12:58] LABS: ABSOLUTE EOSINOPHILS # (AUTO) 0.4 10^3/uL (0.0-0.6); ABSOLUTE LYMPHOCYTES (AUTO) 1.2 10^3/uL (0.5-4.7); ABSOLUTE MONOCYTES (AUTO) 0.5 10^3/uL (0.1-1.4); ABSOLUTE NEUT (AUTO) 3.4 10^3/uL (1.7-8.2); BASOPHILS % (AUTO) 0.2 % (0-2); EOSINOPHILS % (AUTO) 6.7 % (0-6); HEMATOCRIT 44.8 % (37.9-51.0); HEMOGLOBIN 15.2 g/dL (13.5-17.0); HGB HCT DIFFERENCE 0.8; LYMPHOCYTES % (AUTO) 21.4 % (13-45); MEAN CORPUSCULAR HEMOGLOBIN 29.5 pg (27.0-33.4); MEAN CORPUSCULAR HGB CONC 33.9 g/dL (32.0-36.0); MEAN CORPUSCULAR VOLUME 87 fl (80-97); MONOCYTES % (AUTO) 9.4 % (3-13); RED BLOOD COUNT 5.16 10^6/uL (4.35-5.55); RED CELL DISTRIBUTION WIDTH 14.3 % (11.5-14.0); SEGMENTED NEUTROPHILS % (AUTO) 62.3 % (42-78); WHITE BLOOD COUNT 5.4 10^3/uL (4.0-10.5)
[2017-02-08 13:04] LABS: APPEARANCE,URINE CLEAR; BILIRUBIN,URINE NEGATIVE (NEGATIVE); GLUCOSE, URINE >=500 mg/dL (NEGATIVE); KETONES,URINE NEGATIVE (NEGATIVE); LEUKOCYTE ESTERASE,URINE NEGATIVE (NEGATIVE); NITRITE,URINE NEGATIVE (NEGATIVE); PROTEIN,URINE NEGATIVE (NEGATIVE)
--- NOTE | 2017-02-08 13:20 | RADIOLOGY REPORT (SQ) ---
EXAM DESCRIPTION: CHEST SINGLE VIEW COMPLETED DATE/TIME: 02/08/2017 1:12 pm REASON FOR STUDY: copd exacerbation cough COMPARISON: 08/24/2016 EXAM PARAMETERS: NUMBER OF VIEWS: One view. TECHNIQUE: Single frontal radiographic view of the chest acquired. RADIATION DOSE: NA LIMITATIONS: None. FINDINGS: LUNGS AND PLEURA: No opacities, masses or pneumothorax. No pleural effusion. MEDIASTINUM AND HILAR STRUCTURES: No masses. Contour normal. HEART AND VASCULAR STRUCTURES: Heart stable in size. Normal vasculature. BONES: No acute findings. HARDWARE: None in the chest. OTHER: No other significant finding. IMPRESSION: NO ACUTE RADIOGRAPHIC FINDING IN THE CHEST. NO SIGNIFICANT CHANGE FROM PRIOR STUDY. TECHNICAL DOCUMENTATION: JOB ID: [id number] [employer]- All Rights Reserved
[2017-02-08 13:22] LABS: ALANINE AMINOTRANSFERASE 50 U/L (21-72); ALKALINE PHOSPHATASE 112 U/L (38-126); ANION GAP 12 (5-19); ASPARTATE AMINO TRANSFERASE 37 U/L (17-59); BILIRUBIN,DIRECT 0.3 mg/dL (0.0-0.4); BILIRUBIN,TOTAL 1.1 mg/dL (0.2-1.3); BLOOD UREA NITROGEN 16 mg/dL (7-20); CALCIUM 9.4 mg/dL (8.4-10.2); CARBON DIOXIDE 30 mmol/L (22-30); CHLORIDE 99 mmol/L (98-107); CREATINE KINASE 61 U/L (55-170); CREATININE RESULT 0.68 mg/dL (0.52-1.25); GLUCOSE 289 mg/dL (75-110); POTASSIUM 4.7 mmol/L (3.6-5.0); SODIUM 140.9 mmol/L (137-145)
--- NOTE | 2017-02-08 13:31 | ER Document Report ---
ED General - General Mode of Arrival: Wheelchair Information source: Patient TRAVEL OUTSIDE OF THE [place] IN LAST 30 DAYS: No <CM SR - Last Filed: 02/08/17 14:05> <NATI RAINEY - Last Filed: 02/08/17 15:35> - General Chief Complaint: Breathing Difficulty Stated Complaint: DIFFICULTY BREATHING Time Seen by Provider: 02/08/17 11:51 Notes: Patient is a 71 year old male with a history of COPD presents to the emergency department complaining of difficulty breathing with associated symptoms of congestion and a productive cough onset 3 weeks ago. Patient states his symptoms began to worsen 1 week ago. Patient states he has thick delgado sputum when he coughs. Patient does not use oxygen at home but currently has inhalers. Patient also has a history of chronic lower back pain. (CM SR) - Related Data Allergies/Adverse Reactions: No Known Allergies Allergy (Verified 02/08/17 10:52) Past Medical History - General Information source: Patient - Social History Smoking Status: Former Smoker Frequency of alcohol use: None Drug Abuse: None Family History: DM, Hypertension, Malignancy Patient has suicidal ideation: No Patient has homicidal ideation: No - Past Medical History Cardiac Medical History: Reports: Hx Hypercholesterolemia, Hx Hypertension Pulmonary Medical History: Reports: Hx Bronchitis, Hx COPD, Hx Pneumonia Endocrine Medical History: Reports: Hx Diabetes Mellitus Type 2 GI Medical History: Reports: Hx Cirrhosis - fatty, Other - NICHOLS Musculoskeltal Medical History: Reports Hx Arthritis - fibromyalgia low back pain Lrotator cuff Psychiatric Medical History: Reports: Hx Depression Past Surgical History: Reports: Hx Appendectomy, Hx Orthopedic Surgery - Rknee orifLelbow, Hx Rectal Surgery - hemorrhoidectomy - Immunizations Hx Diphtheria, Pertussis, Tetanus Vaccination: Yes <CM SR - Last Filed: 02/08/17 14:05> Review of Systems - Review of Systems Constitutional: No symptoms reported EENT: No symptoms reported Cardiovascular: No symptoms reported Respiratory: See HPI, Cough, Other - dyspnea Gastrointestinal: No symptoms reported Genitourinary: No symptoms reported Male Genitourinary: No symptoms reported Musculoskeletal: No symptoms reported Skin: No symptoms reported Hematologic/Lymphatic: No symptoms reported Neurological/Psychological: No symptoms reported -: Yes All other systems reviewed and negative <CM SR - Last Filed: 02/08/17 14:05> Physical Exam - General General appearance: Appears well, Alert In distress: None - HEENT Head: Normocephalic, Atraumatic Eyes: Normal Conjunctiva: Normal Pupils: PERRL - Respiratory Chest status: Other - copious amounts of thick delgado sputum Breath sounds: Rhonchi, Wheezing - Abdominal Inspection: Morbidly Obese Distension: No distension Bowel sounds: Normal Tenderness: Nontender Organomegaly: No organomegaly - Back Back: Normal - Extremities General upper extremity: Normal ROM General lower extremity: Edema, Normal ROM - Neurological Neuro grossly intact: Yes Cognition: Normal Orientation: AAOx4 Hudgins Coma Scale Eye Opening: Spontaneous Larry Coma Scale Verbal: Oriented Hudgins Coma Scale Motor: Obeys Commands Larry Coma Scale Total: 15 Speech: Normal - Psychological Associated symptoms: Normal affect, Normal mood - Skin Skin Temperature: Warm Skin Moisture: Dry Skin Color: Other - chronic skin changes in pigmentation <CM SR - Last Filed: 02/08/17 14:05> - Vital signs Vitals: Temp Pulse Resp BP Pulse Ox 98.9 F 73 16 117/60 93 02/08/17 11:12 02/08/17 11:12 02/08/17 11:12 02/08/17 11:12 02/08/17 11:12 Course - Laboratory Result Diagrams: 02/08/17 12:26 02/08/17 12:26 <CM SR - Last Filed: 02/08/17 14:05> - Laboratory Result Diagrams: 02/08/17 12:26 02/08/17 12:26 <NATI RAINEY - Last Filed: 02/08/17 15:35> - Vital Signs Vital signs: Temp Pulse Resp BP Pulse Ox 98.9 F 73 14 117/60 95 02/08/17 11:12 02/08/17 11:12 02/08/17 13:15 02/08/17 11:12 02/08/17 13:15 - Laboratory Laboratory results interpreted by me: 02/08/17 02/08/17 02/08/17 12:26 12:26 12:26 RDW 14.3 H Plt Count 108 L Eosinophils % 6.7 H Glucose 289 H Urine Glucose (UA) >=500 H Urine Urobilinogen 2.0 H Discharge <CM SR - Last Filed: 02/08/17 14:05> <NATI RAINEY - Last Filed: 02/08/17 15:35> - Discharge Clinical Impression: Acute exacerbation of chronic obstructive pulmonary disease (COPD), Acute bronchitis with bronchospasm Hyperglycemia due to type 2 diabetes mellitus Qualifiers: Diabetes mellitus penitentiary insulin use: unspecified penitentiary insulin use status Qualified Code(s): E11.65 - Type 2 diabetes mellitus with hyperglycemia Condition: Stable Disposition: HOME, SELF-CARE Additional Instructions: Bronchitis with Bronchospasm (Wheezing): You have bronchitis with bronchospasm (wheezing). Sometimes people develop wheezing with a chest cold. This occurs either because of an underlying tendency toward asthma or because the virus itself irritates the bronchial tubes. This irritation causes cough, shortness of breath, and wheezing. Emergency treatment of bronchospasm may include adrenaline shots or bronchodilator aerosol. You may feel lightheaded and have a rapid pulse for an hour or two. Rest and get plenty of fluids. At home, we'll treat you with a bronchodilator inhaler. Corticosteroids may be required for some patients. Until you recover, avoid chemical fumes, dusts, pollens, and exercising in very cold or dry air. If you smoke, stop now! Most cases of bronchitis get better without antibiotics. We prescribe antibiotics when we believe bacteria are damaging your airways, or if there's high risk the bronchitis will worsen into pneumonia. Increase your fluid intake. A cool mist humidifier may make your lungs more comfortable. An expectorant (cough medicine that loosens phlegm) can help. Repeated episodes of bronchitis and bronchospasm may result in lung damage -- for example, chronic bronchitis, recurrent pneumonias, or emphysema. If you develop a fever, increased wheezing, chest pain, or severe shortness of breath, you should contact the doctor immediately. //////////////////////////////////////////////////////////////////////////////// //////////////////////////////////////////////////////////////////////////////// /////////////////// Start the prednisone and Levaquin as prescribed tomorrow. You were given today' s dose here in the emergency room. Drink plenty of water. Try Robitussin-DM to suppress your cough and loosen up the sputum. Use your nebulizer and inhalers regularly for the wheezing. Try to cough up and spit out the sputum is much as you can. Follow-up with Dr. Fung this week for recheck if not improving. RETURN TO THE EMERGENCY ROOM IF ANY NEW OR WORSENING SYMPTOMS. Prescriptions: Levofloxacin [Levaquin 750 mg Tablet] 750 mg PO DAILY #5 tablet Prednisone [Deltasone 10 mg Tablet] 10 mg PO ASDIR PRN #21 tablet PRN Reason: Referrals: LISSY FUNG MD [Primary Care Provider] - Follow up as needed Scribe Attestation: 02/08/17 14:20 I personally performed the services described in the documentation, reviewed and edited the documentation which was dictated to the scribe in my presence, and it accurately records my words and actions. (NATI RAINEY) Scribe Documentation - Scribe Written by Asher:: Asher Handy, 02/08/2017 13:37 acting as scribe for :: Skylar <CM SR - Last Filed: 02/08/17 14:05>
[2017-02-08 13:35] LABS: CREATINE KINASE MB < 0.22 ng/mL (<4.55); TROPONIN I < 0.012 ng/mL
[2017-02-08] MEDS ORDERED: PREDNISONE 20 MG TABLET PO ONE (14:47)
[2017-02-08] MEDS ORDERED: LEVOFLOXACIN 750 MG TABLET PO ONE (14:47)
[2017-02-08 15:50] VITALS: BP 110/65
--- NOTE | 2017-02-08 20:32 | EKG REPORT ---
SEVERITY:- ABNORMAL ECG - SINUS RHYTHM RBBB AND LAFB : Confirmed by: Virginia Ward MD 08-Feb-2017 20:32:03
== END 2017-02-08 16:03 | disposition home or self-care (01) ==
LOC: ER 10:51
DX: J20.9 Acute bronchitis, unspecified (principal); J44.0 Chronic obstructive pulmonary disease with (acute) lower respiratory infection; J44.1 Chronic obstructive pulmonary disease with (acute) exacerbation; R06.02 Shortness of breath; R09.81 Nasal congestion; R05 Cough; Z87.891 Personal history of nicotine dependence; E11.65 Type 2 diabetes mellitus with hyperglycemia
CPT/HCPCS: 93005; 94640; 99285; 96374; 36415; 87070; 87205; 82553; 82550; 85025; 87077; 80053; 81001; 84484; 71010; 93010; J2930; A9270 ×3; J7512; J7620

== ENCOUNTER 2017-06-19 22:25 | Emergency (ER) | payer MEDICARE, OTHER ==
--- NOTE | 2017-06-19 23:16 | ER Document Report ---
ED General - General TRAVEL OUTSIDE OF THE [place] IN LAST 30 DAYS: No <KALIN HIGHTOWER - Last Filed: 06/20/17 06:50> <RUI LEE - Last Filed: 06/20/17 11:24> - General Chief Complaint: Abdominal Pain Stated Complaint: ABDOMINAL PAIN Time Seen by Provider: 06/19/17 22:58 Notes: Patient is a 72-year-old male who presents with complaint of fever, abdominal pain, urinary frequency, coughing and feelings of shortness of breath. Patient still having a fever earlier today. Temp was 101 at home and therefore they called the ambulance. He received Tylenol and his temp is now down to 100.6. Patient denies any recent runny nose or congestion. His family says that his cirrhosis does make him feel down frequently but does not usually cause fevers. He has never needed a paracentesis or had a large amount of fluid in his abdomen. He does have some associated abdominal pain. (KALIN HIGHTOWER) - Related Data Allergies/Adverse Reactions: No Known Allergies Allergy (Verified 02/08/17 10:52) Past Medical History - Social History Smoking Status: Former Smoker Chew tobacco use (# tins/day): No Frequency of alcohol use: None Drug Abuse: None Family History: DM, Hypertension, Malignancy Patient has suicidal ideation: No Patient has homicidal ideation: No - Past Medical History Cardiac Medical History: Reports: Hx Hypercholesterolemia, Hx Hypertension Pulmonary Medical History: Reports: Hx Bronchitis, Hx COPD, Hx Pneumonia Endocrine Medical History: Reports: Hx Diabetes Mellitus Type 2 Renal/ Medical History: Denies: Hx Peritoneal Dialysis GI Medical History: Reports: Hx Cirrhosis - fatty Musculoskeltal Medical History: Reports Hx Arthritis - fibromyalgia low back pain Lrotator cuff Psychiatric Medical History: Reports: Hx Depression Past Surgical History: Reports: Hx Appendectomy, Hx Orthopedic Surgery - Rknee orifLelbow, Hx Rectal Surgery - hemorrhoidectomy - Immunizations Hx Diphtheria, Pertussis, Tetanus Vaccination: Yes <KALIN HIGHTOWER - Last Filed: 06/20/17 06:50> Review of Systems <KALIN HIGHTOWER - Last Filed: 06/20/17 06:50> <RUI LEE - Last Filed: 06/20/17 11:24> - Review of Systems Notes: My Normal Review Basic REVIEW OF SYSTEMS: CONSTITUTIONAL : Fever CARDIOVASCULAR: Denies chest pain. RESPIRATORY: Recurrent coughing GASTROINTESTINAL: intermittent sharp abdominal pain. Denies nausea, vomiting, MUSCULOSKELETAL: Denies neck or back pain or joint pain or swelling. SKIN: Denies rash or skin lesions. NEUROLOGICAL: Denies altered mental status or loss of consciousness. Denies headache. Denies weakness or paralysis or loss of use of either side. Denies problems with gait or speech. Denies sensory or motor loss. ALL OTHER SYSTEMS REVIEWED AND NEGATIVE. (KALIN HIGHTOWER) Physical Exam <KALIN HIGHTOWER - Last Filed: 06/20/17 06:50> <RUI LEE - Last Filed: 06/20/17 11:24> - Vital signs Vitals: Resp Pulse Ox 20 94 06/19/17 22:30 06/19/17 22:30 - Notes Notes: General Appearance: Well nourished, alert, cooperative, no acute distress, mild obvious discomfort. Vitals: reviewed, See vital signs table. Head: no swelling or tenderness to the head Eyes: PERRL, EOMI, Conjuctiva clear Mouth: No decreasd moisture Throat: No tonsillar inflammation, No airway obstruction, No lymphadenopathy Lungs: No wheezing, No rales, No rhonci, No accessory muscle use, good air exchange bilaterally. Heart: Normal rate, Regular rythm, No murmur, no rub Abdomen: Normal BS, soft, No rigidity, some abdominal pain to palpation only over the right upper quadrant. Remainder of abdomen is nontender and soft. Extremities: strength 5/5 in all extremities, good pulses in all extremities, no swelling or tenderness in the extremities, no edema. Skin: warm, dry, appropriate color, no rash Neuro: speech clear, oriented x 3, normal affect, responds appropriately to questions. (KALIN HIGHTOWER) Course - Laboratory Result Diagrams: 06/19/17 23:15 06/19/17 23:15 <KALIN HIGHTOWER - Last Filed: 06/20/17 06:50> - Laboratory Result Diagrams: 06/19/17 23:15 06/19/17 23:15 <RUI LEE - Last Filed: 06/20/17 11:24> - Re-evaluation Re-evalutation: 06/19/17 23:11 Since therefore I performed a bedside fast exam to look for any evidence of ascitic fluid that could be tapped via paracentesis. There are no large fluid pockets to tap at this time. I have ordered septic workup. Patient with a lot of coughing for a chest x-ray as well as a urinalysis as well as blood cultures and lactic acid venous blood gas. Patient's vital signs are stable at this time. 06/20/17 00:22 Patient's ammonia level is 93. The daughter was able to pull up her recent ammonia level from March it was 127 that time. Daughter said her primary care physician placed on something temporarily to bring down the ammonia level. He is currently no longer on it. Patient still has some abdominal pain but he is actually already feeling better. I have not yet found a source of his fever and his laboratory workup. He may have a bronchitis being that he has had a lot of recent coughing and congestion. I will obtain a CT scan of his abdomen pelvis being that he did have some dull pain associated with fever and he has history of cirrhosis. CT scan has been ordered. 06/20/17 01:29 Patient continues that he feels improved. Patient did have some abdominal pain therefore CT scan was obtained. His pain seems pretty well controlled now. CT scan is read as potential for acute cholecystitis. He does have chronically dilated gallbladder but now has some sludge in it and possibly some inflammatory changes per the radiologist. I did speak with the surgeon, Dr. De La Cruz, who requested we get a HIDA scan of the patient. I have ordered a HIDA scan informed the patient and family the plan. 06/20/17 04:13 I did speak with the nursing staff because patient has not gone for the HIDA scan. They inform me that they spoke with radiology and nuclear medicine was not going to come in because HIDA scans are usually "not typically an emergency ". I informed them that the surgeon needs the scan performed to know whether not he needs to take the patient to the OR and therefore the scan should not be delayed. They are trying to get back in touch with nuclear powerplant supervisor at this time but are having to difficulties in doing so. I did go and speak with the family and informed them of the delay. Family is very kind and understanding of this. (KALIN HIGHTOWER) 06/20/17 11:[address] Wilhelm, prior to that he underwent HIDA scanning. I perform serial examination the patient, he does have diffuse abdominal tenderness although it is relatively mild, he states he feels much better than he did earlier. Review of his labs show a normal CBC without any bandemia. Normal LFTs and bilirubin. HIDA scan is read as normal. Patient is evaluated by the surgeon. [place] to be appropriate and safe for discharge home, given him extensive instructions with regard to returning should he develop recurrent symptoms or any fever. (RUI LEE) - Vital Signs Vital signs: Temp Pulse Resp BP Pulse Ox 97.7 F 90 13 121/85 95 06/20/17 07:38 06/19/17 22:52 06/20/17 10:07 06/20/17 10:07 06/20/17 10:07 - Laboratory Laboratory results interpreted by me: 06/19/17 06/19/17 06/19/17 22:45 23:15 23:15 RDW 14.6 H Plt Count 77 L PT VBG pH Glucose 225 H Ammonia Urine Glucose (UA) >=500 H Urine Ketones TRACE H Urine Urobilinogen 4.0 H 06/19/17 06/19/17 06/19/17 23:15 23:15 23:15 RDW Plt Count PT 15.6 H VBG pH 7.43 H Glucose Ammonia 93.3 H Urine Glucose (UA) Urine Ketones Urine Urobilinogen - EKG Interpretation by Me Additional EKG results interpreted by me: 06/20/17 06:50 EKG is reviewed and interpreted by me. EKG shows sinus tachycardia with rate of [address] segment elevation. Does have some ST segment depression mainly in the lateral precordial leads. This is actually not new. X had much larger ST segment depressions on his previous EKG from September 29, 2016. ND interval, QRS duration, QTc intervals are within normal range. (KALIN HIGHTOWER) Discharge <KALIN HIGHTOWER - Last Filed: 06/20/17 06:50> <RUI LEE - Last Filed: 06/20/17 11:24> - Discharge Clinical Impression: Hyperammonemia Abdominal pain Qualifiers: Abdominal location: unspecified location Qualified Code(s): R10.9 - Unspecified abdominal pain Condition: Good Disposition: HOME, SELF-CARE Instructions: Abdominal Pain ([facility]) Additional Instructions: Please start taking the lactulose as this will help better control your ammonia level. Do not take the miralax while taking the lactulose. Please return to the ER immediately if you develop worsening abdominal pain, recurrent fevers, vomiting or feel unwell. Follow up with your doctor in 1-2 days for reevaluation. Prescriptions: Lactulose 30 ml PO TID #900 ml Referrals: LISSY COSTA MD [ACTIVE STAFF] - Follow up in 3-5 days
[2017-06-19 23:30] LABS: VENOUS BLOOD BASE EXCESS 1.1 mmol/L; VENOUS BLOOD HCO3 25.5 mmol/L (20-32); VENOUS BLOOD PCO2 39.5 mmHg (35-63); VENOUS BLOOD PH 7.43 (7.30-7.42)
[2017-06-19 23:36] LABS: ABSOLUTE EOSINOPHILS # (AUTO) 0.3 10^3/uL (0.0-0.6); ABSOLUTE LYMPHOCYTES (AUTO) 1.1 10^3/uL (0.5-4.7); ABSOLUTE MONOCYTES (AUTO) 0.6 10^3/uL (0.1-1.4); ABSOLUTE NEUT (AUTO) 3.3 10^3/uL (1.7-8.2); BASOPHILS % (AUTO) 0.3 % (0-2); HEMATOCRIT 41.5 % (37.9-51.0); HEMOGLOBIN 14.1 g/dL (13.5-17.0); INTERNATIONAL RATION (INR) 1.18; LYMPHOCYTES % (AUTO) 20.9 % (13-45); MEAN CORPUSCULAR HEMOGLOBIN 29.8 pg (27.0-33.4); MEAN CORPUSCULAR HGB CONC 33.8 g/dL (32.0-36.0); MEAN CORPUSCULAR VOLUME 88 fl (80-97); MONOCYTES % (AUTO) 10.5 % (3-13); PROTHROMBIN TIME 15.6 SEC (11.4-15.4); RED BLOOD COUNT 4.72 10^6/uL (4.35-5.55); RED CELL DISTRIBUTION WIDTH 14.6 % (11.5-14.0); SEGMENTED NEUTROPHILS % (AUTO) 63.3 % (42-78); TOTAL CELLS COUNTED % (AUTO) 100 %; WHITE BLOOD COUNT 5.3 10^3/uL (4.0-10.5)
[2017-06-19 23:36] LABS: APPEARANCE,URINE CLEAR; BILIRUBIN,URINE NEGATIVE (NEGATIVE); COLOR,URINE YELLOW; GLUCOSE, URINE >=500 mg/dL (NEGATIVE); KETONES,URINE TRACE mg/dL (NEGATIVE); LEUKOCYTE ESTERASE,URINE NEGATIVE (NEGATIVE); NITRITE,URINE NEGATIVE (NEGATIVE); PROTEIN,URINE NEGATIVE (NEGATIVE); URINE SPECIFIC GRAVITY 1.023
[2017-06-19 23:40] LABS: PLATELET COUNT 77 10^3/uL (150-450)
[2017-06-19 23:51] LABS: ALANINE AMINOTRANSFERASE 57 U/L (21-72); ALBUMIN 3.8 g/dL (3.5-5.0); ALKALINE PHOSPHATASE 99 U/L (38-126); ANION GAP 12 (5-19); ASPARTATE AMINO TRANSFERASE 56 U/L (17-59); BILIRUBIN,DIRECT 0.3 mg/dL (0.0-0.4); BILIRUBIN,TOTAL 0.7 mg/dL (0.2-1.3); BLOOD UREA NITROGEN 19 mg/dL (7-20); CALCIUM 9.2 mg/dL (8.4-10.2); CARBON DIOXIDE 25 mmol/L (22-30); CHLORIDE 104 mmol/L (98-107); GLUCOSE 225 mg/dL (75-110); SODIUM 140.9 mmol/L (137-145); TOTAL PROTEIN 6.7 g/dL (6.3-8.2)
[2017-06-20 00:11] LABS: A TYPE INFLUENZA AG NEGATIVE (NEGATIVE); B INFLUENZA AG NEGATIVE (NEGATIVE)
--- NOTE | 2017-06-20 00:15 | RADIOLOGY REPORT (SQ) ---
EXAM DESCRIPTION: CHEST SINGLE VIEW CLINICAL HISTORY: fever COMPARISON: 03/11/2016 FINDINGS: Single frontal view of the chest. Atherosclerotic calcification and tortuosity of the thoracic aorta. Heart is not enlarged. Leads overlie the chest. No consolidation, pneumothorax, or pleural effusion. No displaced rib fractures identified. Upper abdominal soft tissues are unremarkable. IMPRESSION: 1. No acute pulmonary process identified.
[2017-06-20] MEDS ORDERED: NORMAL SALINE 500 ML IV ONE (00:17)
--- NOTE | 2017-06-20 01:13 | RADIOLOGY REPORT (SQ) ---
EXAM DESCRIPTION: CT ABDOMEN AND PELVIS WITH CONTRAST CLINICAL HISTORY: Diffuse abdominal pain. COMPARISON: None Available. TECHNIQUE: CT of the abdomen and pelvis performed following IV administration of 99 mL of Isovue-370. Delayed images obtained. DLP: 2415.98 mGycm FINDINGS: Lung Bases: The visualized lung bases are clear. Bones: No destructive bone lesions identified. Degenerative change of the spine. Abdomen: Liver: The liver has normal size and density. No intrahepatic mass or biliary dilatation. Gallbladder: Layering sludge versus gallstones in the gallbladder lumen. The gallbladder lumen is not completely identified on this study. Mild pericholecystic inflammatory change. Spleen, Pancreas, and Adrenal Glands: The spleen, pancreas, and adrenal glands are unremarkable. Kidneys: The kidneys have normal size and contour without evidence of solid mass or hydronephrosis. Vasculature: Aortoiliac atherosclerosis. IVC is unremarkable. The portal vein is patent. The proximal visceral and renal arteries are patent. Stomach: The stomach and duodenum have normal course. Other: No free intraperitoneal air. No free fluid or lymphadenopathy. Pelvis: Bladder: Urinary bladder is unremarkable. Bowel: No dilated loops of large or small bowel. Appendix: No definite evidence of appendicitis however the appendix is not definitely visualized. Pelvis: Prostate is not enlarged. IMPRESSION: 1. Layering hyperdense material in a dilated gallbladder may represent sludge or calcified stones. Mild pericholecystic inflammatory change. These findings could be seen with acute cholecystitis. This exam was performed according to our departmental dose-optimization program, which includes automated exposure control, adjustment of the mA and/or kV according to patient size and/or use of iterative reconstruction technique.
--- NOTE | 2017-06-20 06:20 | PDOC CONSULTATION ---
History of Present Illness Admission Date/PCP: 06/20/17 Patient complains of: abdominal pains with fever History of Present Illness: CLARKE LEW is a 72 year old male diabetic with history of cirrhosis and COPD has been c/o chronic abdominal pains but worse last night with fever. CT scan of the abdomen showed gallbladder sludge. Patient did have a fatty meal yesterday though not necessarily have fatty food intolerance in the past. Used to be a heavy smoker for 20 yrs( 2 ppd) . Family claims pt got exposed to toxic fumes at work and developed the Cirrhosis. Pt claims he used to drink heavy for a short period when he was younger. Past Medical History Cardiac Medical History: Reports: Hyperlipidema, Hypertension Pulmonary Medical History: Reports: Bronchitis, Chronic Obstructive Pulmonary Disease (COPD), Pneumonia Endocrine Medical History: Reports: Diabetes Mellitus Type 2 GI Medical History: Reports: Cirrhosis - fatty Musculoskeltal Medical History: Reports: Arthritis - fibromyalgia low back pain Lrotator cuff Psychiatric Medical History: Reports: Depression Past Surgical History Past Surgical History: Reports: Appendectomy, Orthopedic Surgery - Linh Dupont Social History Smoking Status: Former Smoker Frequency of Alcohol Use: None Hx Recreational Drug Use: No Hx Prescription Drug Abuse: No Family History Family History: DM, Hypertension, Malignancy Parental Family History Reviewed: Yes - Parents likely had DM accdg to patient Children Family History Reviewed: No Sibling(s) Family History Reviewed.: No Medication/Allergy Home Medications: Albuterol Sulfate [Ventolin Hfa] 1 puff IH Q4 PRN 07/26/16 Duloxetine HCl [Cymbalta] 60 mg PO DAILY 07/26/16 Finasteride [Proscar] 5 mg PO DAILY 07/26/16 Fluticasone/Salmeterol [Advair 250-50 Diskus 28 dose] 1 inh IH Q12 07/26/16 Furosemide [Lasix] 40 mg PO BID 07/26/16 Gabapentin [Neurontin 300 mg Capsule] 300 mg PO Q8 07/26/16 Hydromorphone HCl [Dilaudid] 8 mg PO QID 07/26/16 Insulin Degludec [Tresiba Flextouch U-100] 80 unit SQ QHS 07/26/16 Montelukast Sodium [Singulair] 10 mg PO QHS 07/26/16 Polyethylene Glycol 3350 [Miralax Powder 17 gm/Packet] 17 gm PO DAILY 07/26/16 Pravastatin Sodium [Pravachol] 80 mg PO QHS 07/26/16 Ursodiol 250 mg PO BID 07/26/16 Hydromorphone HCl [Dilaudid 2 mg Tablet] 8 mg PO Q6 #120 tablet 07/29/16 Insulin Lispro [Humalog Insulin (Lispro) 100 unit/mL] 25 unit SUBCUT AC #3000 unit 07/29/16 Lubiprostone [Amitiza 24 Mcg Capsule] 24 mcg PO BID #60 capsule 07/29/16 Tiotropium [place] [Spiriva Handihaler 5 Cap/Kit (18 Mcg/Cap)] 1 cap IH QPM #30 kit 07/29/16 Levofloxacin [Levaquin 750 mg Tablet] 750 mg PO DAILY #5 tablet 02/08/17 Prednisone [Deltasone 10 mg Tablet] 10 mg PO ASDIR PRN #21 tablet 02/08/17 Lactulose 30 ml PO TID #900 ml 06/20/17 Allergies/Adverse Reactions: No Known Allergies Allergy (Verified 02/08/17 10:52) Review of Systems Constitutional: PRESENT: fever(s) Eyes: PRESENT: other - no visual or hearing changes Cardiovascular: PRESENT: chest pain, dyspnea on exertion Respiratory: PRESENT: dyspnea Gastrointestinal: PRESENT: diarrhea - past few days but stopped yesterday Genitourinary: PRESENT: difficulty urinating Neurological: PRESENT: other - no seizures Hematologic/Lymphatic: PRESENT: other - no easy bruising Physical Exam Vital Signs: Temp Pulse Resp BP Pulse Ox 98.3 F 90 18 116/60 95 06/20/17 04:01 06/19/17 22:52 06/20/17 05:01 06/20/17 05:01 06/20/17 05:01 Intake & Output 06/18/17 06/19/17 06/20/17 06:59 06:59 06:59 Weight 124.738 kg General appearance: PRESENT: mild distress, morbidly obese Head exam: PRESENT: atraumatic Eye exam: PRESENT: conjunctiva pink Mouth exam: PRESENT: moist Neck exam: PRESENT: full ROM Respiratory exam: PRESENT: clear to auscultation yadi Cardiovascular exam: PRESENT: RRR Pulses: PRESENT: normal radial pulses Vascular exam: PRESENT: normal capillary refill GI/Abdominal exam: PRESENT: soft, tenderness - epigastrium and RUQ Rectal exam: PRESENT: deferred Extremities exam: PRESENT: full ROM Musculoskeletal exam: PRESENT: ambulatory Neurological exam: PRESENT: alert, oriented to person, oriented to place, oriented to time, oriented to situation Psychiatric exam: PRESENT: appropriate affect Skin exam: PRESENT: normal color, warm Results Laboratory Results: 06/19/17 23:15 06/19/17 23:15 06/19/17 06/19/17 06/19/17 22:45 23:15 23:15 WBC 5.3 RBC 4.72 Hgb 14.1 Hct 41.5 MCV 88 MCH 29.8 MCHC 33.8 RDW 14.6 H Plt Count 77 L Seg Neutrophils % 63.3 Lymphocytes % 20.9 Monocytes % 10.5 Eosinophils % 5.0 Basophils % 0.3 Absolute Neutrophils 3.3 Absolute Lymphocytes 1.1 Absolute Monocytes 0.6 Absolute Eosinophils 0.3 Absolute Basophils 0.0 VBG pH VBG pCO2 VBG HCO3 VBG Base Excess Sodium 140.9 Potassium 4.0 Chloride 104 Carbon Dioxide 25 Anion Gap 12 BUN 19 Creatinine 0.84 Est GFR ( Amer) > 60 Est GFR (Non-Af Amer) > 60 Glucose 225 H Lactic Acid Calcium 9.2 Total Bilirubin 0.7 AST 56 ALT 57 Alkaline Phosphatase 99 Ammonia Total Protein 6.7 Albumin 3.8 Urine Color YELLOW Urine Appearance CLEAR Urine pH 7.0 Ur Specific [place] 1.023 Urine Protein NEGATIVE Urine Glucose (UA) >=500 H Urine Ketones TRACE H Urine Blood NEGATIVE Urine Nitrite NEGATIVE Ur Leukocyte Esterase NEGATIVE Urine RBC (Auto) 0 06/19/17 06/19/17 06/19/17 23:15 23:15 23:15 WBC RBC Hgb Hct MCV MCH MCHC RDW Plt Count Seg Neutrophils % Lymphocytes % Monocytes % Eosinophils % Basophils % Absolute Neutrophils Absolute Lymphocytes Absolute Monocytes Absolute Eosinophils Absolute Basophils VBG pH 7.43 H VBG pCO2 39.5 VBG HCO3 25.5 VBG Base Excess 1.1 Sodium Potassium Chloride Carbon Dioxide Anion Gap BUN Creatinine Est GFR ( Amer) Est GFR (Non-Af Amer) Glucose Lactic Acid 2.1 Calcium Total Bilirubin AST ALT Alkaline Phosphatase Ammonia 93.3 H Total Protein Albumin Urine Color Urine Appearance Urine pH Ur Specific [place] Urine Protein Urine Glucose (UA) Urine Ketones Urine Blood Urine Nitrite Ur Leukocyte Esterase Urine RBC (Auto) 06/20/17 03:22 WBC RBC Hgb Hct MCV MCH MCHC RDW Plt Count Seg Neutrophils % Lymphocytes % Monocytes % Eosinophils % Basophils % Absolute Neutrophils Absolute Lymphocytes Absolute Monocytes Absolute Eosinophils Absolute Basophils VBG pH VBG pCO2 VBG HCO3 VBG Base Excess Sodium Potassium Chloride Carbon Dioxide Anion Gap BUN Creatinine Est GFR ( Amer) Est GFR (Non-Af Amer) Glucose Lactic Acid 1.7 Calcium Total Bilirubin AST ALT Alkaline Phosphatase Ammonia Total Protein Albumin Urine Color Urine Appearance Urine pH Ur Specific [place] Urine Protein Urine Glucose (UA) Urine Ketones Urine Blood Urine Nitrite Ur Leukocyte Esterase Urine RBC (Auto) Impressions: Chest X-Ray 06/19/17 23:10 IMPRESSION: 1. No acute pulmonary process identified. Abdomen/Pelvis CT 06/20/17 00:17 IMPRESSION: 1. Layering hyperdense material in a dilated gallbladder may represent sludge or calcified stones. Mild pericholecystic inflammatory change. These findings could be seen with acute cholecystitis. This exam was performed according to our departmental dose-optimization program, which includes automated exposure control, adjustment of the mA and/or kV according to patient size and/or use of iterative reconstruction technique. Assessment & Plan - Diagnosis (1) Gallbladder sludge Is this a current diagnosis for this admission?: Yes - Time Time Spent: 30 to 50 Minutes - Plan Summary Plan Summary: For HIDA scan. If + may need lap alex Keep NPO Check Lipase stat Hydrate
[2017-06-20] MEDS ORDERED: NORMAL SALINE 1000 ML 1,000 ML IV PRN (06:30)
[2017-06-20] MEDS ORDERED: GABAPENTIN 300 MG CAPSULE PO ONE (07:02)
[2017-06-20] MEDS ORDERED: HYDROMORPHONE HCL 2 MG TABLET PO ONE (07:03)
[2017-06-20 12:28] VITALS: BP 108/61
--- NOTE | 2017-06-20 14:41 | RADIOLOGY REPORT (SQ) ---
EXAM DESCRIPTION: NM HIDA SCAN WITH CCK COMPLETED DATE/TIME: 06/20/2017 1:26 am REASON FOR STUDY: abdominal pain COMPARISON: None. RADIONUCLIDE AND DOSE: DOSAGE RADIONUCLIDE: 5.4 millicuries Tc99m Mebrofenin. DOSAGE MORPHINE: Not required. The route of agent administration: Intravenous TECHNIQUE: Serial imaging right upper quadrant up to 60 minutes following injection of radionuclide. Patient imaged AP and Right Lateral. LIMITATIONS: None. FINDINGS: LIVER: Normal visualization without areas of photopenia. INTRA-HEPATIC BILE DUCTS: Temporal visualization normal. No dilatation. COMMON BILE DUCT: Normal without dilatation or delayed visualization. GALLBLADDER: Normal visualization. OTHER: No other significant finding. IMPRESSION: NORMAL STUDY WITHOUT CYSTIC OR COMMON DUCT OBSTRUCTION. TECHNICAL DOCUMENTATION: JOB ID: [id number] [employer]- All Rights Reserved Reading location - IP/workstation name: [email or web address]
== END 2017-06-20 12:28 | disposition home or self-care (01) ==
LOC: ER 22:25
DX: E72.20 Disorder of urea cycle metabolism, unspecified (principal); R10.9 Unspecified abdominal pain; R50.9 Fever, unspecified; R06.02 Shortness of breath; E78.00 Pure hypercholesterolemia, unspecified; I10 Essential (primary) hypertension; J44.9 Chronic obstructive pulmonary disease, unspecified; Z87.891 Personal history of nicotine dependence
CPT/HCPCS: 99285; 96360; 96361; 36415; 87040; 82140; 83690; 85025; 85610; 80053; 81001; 82803; 83605; 87804; 71045; 78226; 74177; A9537; A9270 ×2; J7030; J7040; Q9969

== ENCOUNTER 2017-09-01 17:12 | Emergency (ER) | payer MEDICARE, OTHER ==
--- NOTE | 2017-09-01 17:47 | ER Document Report ---
ED Medical Screen (RME) - General Chief Complaint: Shortness Of Breath Stated Complaint: SHORTNESS OF BREATH Time Seen by Provider: 09/01/17 17:40 Notes: RAPID MEDICAL EVALUATION DISCLOSURE I have seen this patient as part of a Rapid Medical Evaluation and, if applicable, placed any initially appropriate orders. The patient will be seen and fully evaluated, including a full history and physical exam, by a provider ( in Main ED or Fast Track) when a room becomes available. 72-year-old male PMH liver cirrhosis pneumonia here with family who states he has had progressively worsening shortness of breath cough low-grade fever over the past few days. He also states he has had some chest pains "off and on" but will not tell me if he has had any today. They also talk about him having worsening abdominal distention due to his liver cirrhosis. He has never needed paracentesis. His last pneumonia admission was 1 year ago, they report. EXAM CTAB RRR Mild diffuse abdominal TTP with distention TRAVEL OUTSIDE OF THE [place] IN LAST 30 DAYS: No - Related Data Allergies/Adverse Reactions: No Known Allergies Allergy (Verified 02/08/17 10:52) Past Medical History - Social History Chew tobacco use (# tins/day): No Frequency of alcohol use: Rare Drug Abuse: None - Past Medical History Cardiac Medical History: Reports: Hx Hypercholesterolemia, Hx Hypertension Pulmonary Medical History: Reports: Hx Bronchitis, Hx COPD, Hx Pneumonia Endocrine Medical History: Reports: Hx Diabetes Mellitus Type 2 Renal/ Medical History: Denies: Hx Peritoneal Dialysis GI Medical History: Reports: Hx Cirrhosis - fatty Musculoskeltal Medical History: Reports Hx Arthritis - fibromyalgia low back pain Lrotator cuff Psychiatric Medical History: Reports: Hx Depression Past Surgical History: Reports: Hx Appendectomy, Hx Orthopedic Surgery - Rknee orifLelbow, Hx Rectal Surgery - hemorrhoidectomy - Immunizations Hx Diphtheria, Pertussis, Tetanus Vaccination: Yes Physical Exam - Vital signs Vitals: Temp Pulse Resp BP Pulse Ox 98.3 F 73 20 129/68 H 95 09/01/17 17:22 09/01/17 17:22 09/01/17 17:22 09/01/17 17:22 09/01/17 17:22 Course - Vital Signs Vital signs: Temp Pulse Resp BP Pulse Ox 98.3 F 73 20 129/68 H 95 09/01/17 17:22 09/01/17 17:22 09/01/17 17:22 09/01/17 17:22 09/01/17 17:22
--- NOTE | 2017-09-01 18:08 | RADIOLOGY REPORT (SQ) ---
EXAM DESCRIPTION: CHEST 2 VIEWS COMPLETED DATE/TIME: 09/01/2017 5:54 pm REASON FOR STUDY: cough sob fever; pneumonia? COMPARISON: 08/24/2016 EXAM PARAMETERS: NUMBER OF VIEWS: two views TECHNIQUE: Digital Frontal and Lateral radiographic views of the chest acquired. RADIATION DOSE: NA LIMITATIONS: none FINDINGS: LUNGS AND PLEURA: No consolidation, masses or pneumothorax. Similar interstitial markings . No pleural effusion. MEDIASTINUM AND HILAR STRUCTURES: Stable. HEART AND VASCULAR STRUCTURES: Heart normal size. No evidence for failure. BONES: No acute findings. HARDWARE: None in the chest. OTHER: No other significant finding. IMPRESSION: No consolidation or pleural effusion. TECHNICAL DOCUMENTATION: JOB ID: [id number] [id number] 2010 [employer]- All Rights Reserved Reading location - IP/workstation name: [employer]
[2017-09-01 19:09] LABS: APPEARANCE,URINE CLEAR; BILIRUBIN,URINE NEGATIVE (NEGATIVE); COLOR,URINE YELLOW; GLUCOSE, URINE >=500 mg/dL (NEGATIVE); KETONES,URINE TRACE mg/dL (NEGATIVE); LEUKOCYTE ESTERASE,URINE NEGATIVE (NEGATIVE); NITRITE,URINE NEGATIVE (NEGATIVE); PROTEIN,URINE NEGATIVE (NEGATIVE)
[2017-09-01 19:14] LABS: ALANINE AMINOTRANSFERASE 92 U/L (21-72); ALBUMIN 3.6 g/dL (3.5-5.0); ALKALINE PHOSPHATASE 178 U/L (38-126); ANION GAP 13 (5-19); ASPARTATE AMINO TRANSFERASE 87 U/L (17-59); BILIRUBIN,DIRECT 0.4 mg/dL (0.0-0.4); BILIRUBIN,TOTAL 0.7 mg/dL (0.2-1.3); BLOOD UREA NITROGEN 14 mg/dL (7-20); CALCIUM 9.1 mg/dL (8.4-10.2); CARBON DIOXIDE 26 mmol/L (22-30); CHLORIDE 101 mmol/L (98-107); GLUCOSE 269 mg/dL (75-110); LIPASE 177.5 U/L (23-300); SODIUM 140.2 mmol/L (137-145); TOTAL PROTEIN 6.9 g/dL (6.3-8.2)
[2017-09-01 19:16] LABS: ABSOLUTE EOSINOPHILS # (AUTO) 0.2 10^3/uL (0.0-0.6); ABSOLUTE LYMPHOCYTES (AUTO) 1.1 10^3/uL (0.5-4.7); ABSOLUTE MONOCYTES (AUTO) 0.3 10^3/uL (0.1-1.4); ABSOLUTE NEUT (AUTO) 2.4 10^3/uL (1.7-8.2); BASOPHILS % (AUTO) 0.3 % (0-2); HEMATOCRIT 41.6 % (37.9-51.0); HEMOGLOBIN 14.4 g/dL (13.5-17.0); LYMPHOCYTES % (AUTO) 26.6 % (13-45); MEAN CORPUSCULAR HEMOGLOBIN 30.3 pg (27.0-33.4); MEAN CORPUSCULAR HGB CONC 34.6 g/dL (32.0-36.0); MEAN CORPUSCULAR VOLUME 88 fl (80-97); MONOCYTES % (AUTO) 8.3 % (3-13); PLATELET COUNT 106 10^3/uL (150-450); RED BLOOD COUNT 4.75 10^6/uL (4.35-5.55); RED CELL DISTRIBUTION WIDTH 15.1 % (11.5-14.0); SEGMENTED NEUTROPHILS % (AUTO) 58.8 % (42-78); TOTAL CELLS COUNTED % (AUTO) 100 %
[2017-09-01 19:25] LABS: NT PRO BNP 101 pg/mL (5-900)
[2017-09-01 19:37] LABS: TROPONIN I < 0.012 ng/mL
--- NOTE | 2017-09-01 20:28 | ER Document Report ---
ED General - General Chief Complaint: Shortness Of Breath Stated Complaint: SHORTNESS OF BREATH Time Seen by Provider: 09/01/17 17:40 Mode of Arrival: Ambulatory Information source: Patient, Relative Notes: 72-year-old male presents with multitude of complaints. Patient notes that for the past 2 weeks he has been having URI-like symptoms admits to a productive cough. Patient notes it was initially greenish brown but has since turned into a thick white sputum. Patient notes fevers at home subjective max temp was 99.7. Patient also notes abdominal distention has a history of cirrhosis has never been tapped before. Patient is on lactulose and is concerned about his ammonia level as well. Denies any nausea vomiting or diarrhea TRAVEL OUTSIDE OF THE [place] IN LAST 30 DAYS: No - HPI Onset: Other Onset/Duration: Persistent Quality of pain: Cramping Severity: Mild Pain Level: 1 Associated symptoms: Productive cough, Fever, Shortness of breath, Other Exacerbated by: Denies Relieved by: Denies Similar symptoms previously: No Recently seen / treated by doctor: No - Related Data Allergies/Adverse Reactions: No Known Allergies Allergy (Verified 02/08/17 10:52) Past Medical History - Social History Smoking Status: Former Smoker Cigarette use (# per day): No Chew tobacco use (# tins/day): No Smoking Education Provided: No Frequency of alcohol use: Rare Drug Abuse: None Family History: DM, Hypertension, Malignancy Patient has suicidal ideation: No Patient has homicidal ideation: No - Past Medical History Cardiac Medical History: Reports: Hx Hypercholesterolemia, Hx Hypertension Pulmonary Medical History: Reports: Hx Bronchitis, Hx COPD, Hx Pneumonia Endocrine Medical History: Reports: Hx Diabetes Mellitus Type 2 Renal/ Medical History: Denies: Hx Peritoneal Dialysis GI Medical History: Reports: Hx Cirrhosis - fatty Musculoskeletal Medical History: Reports Hx Arthritis - fibromyalgia low back pain Lrotator cuff Psychiatric Medical History: Reports: Hx Depression Past Surgical History: Reports: Hx Appendectomy, Hx Orthopedic Surgery - Rknee orifLelbow, Hx Rectal Surgery - hemorrhoidectomy - Immunizations Hx Diphtheria, Pertussis, Tetanus Vaccination: Yes Review of Systems - Review of Systems Notes: REVIEW OF SYSTEMS: CONSTITUTIONAL : Admits to fever EENT: Denies eye, ear, throat, or mouth pain or symptoms. Denies nasal or sinus congestion or discharge. Denies throat, tongue, or mouth swelling or difficulty swallowing. CARDIOVASCULAR: Denies chest pain. Denies palpitations or racing or irregular heart beat. Denies ankle edema. RESPIRATORY: Admits to cough shortness of breath productive. GASTROINTESTINAL: Admits to abdominal distention GENITOURINARY: Denies difficulty urinating, painful urination, burning, frequency, blood in urine, or discharge. MUSCULOSKELETAL: Denies back or neck pain or stiffness. Denies joint pain or swelling. SKIN: Denies rash, lesions or sores. HEMATOLOGIC : Denies easy bruising or bleeding. LYMPHATIC: Denies swollen, enlarged glands. NEUROLOGICAL: Denies confusion or altered mental status. Denies passing out or loss of consciousness. Denies dizziness or lightheadedness. Denies headache. Denies weakness or paralysis or loss of use of either side. Denies problems with gait or speech. Denies sensory loss, numbness, or tingling. Denies seizures. PSYCHIATRIC: Denies anxiety or stress. Denies depression, suicidal ideation, or homicidal ideation. ALL OTHER SYSTEMS REVIEWED AND NEGATIVE. Dictation was performed using [employer] voice recognition software PHYSICAL EXAMINATION: GENERAL: Well-appearing, well-nourished and in no acute distress. HEAD: Atraumatic, normocephalic. EYES: Pupils equal round and reactive to light, extraocular movements intact, sclera anicteric, conjunctiva are normal. ENT: Nares patent, oropharynx clear without exudates. Moist mucous membranes. NECK: Normal range of motion, supple without lymphadenopathy LUNGS: Breath sounds clear to auscultation bilaterally and equal. No wheezes rales or rhonchi. HEART: Regular rate and rhythm without murmurs ABDOMEN: Soft, distended abdomen no rebound or guarding Musculoskeletal: Normal range of motion, no pitting or edema. No cyanosis. NEUROLOGICAL: Cranial nerves grossly intact. Normal speech, normal gait. Normal sensory, motor exams PSYCH: Normal mood, normal affect. SKIN: Warm, Dry, normal turgor, no rashes or lesions noted. Physical Exam - Vital signs Vitals: Temp Pulse Resp BP Pulse Ox 98.3 F 73 20 129/68 H 95 09/01/17 17:22 09/01/17 17:22 09/01/17 17:22 09/01/17 17:22 09/01/17 17:22 Course - Re-evaluation Re-evalutation: 09/01/17 20:41 Lab work pending at this time CT abdomen pelvis as well as ammonia chest x-ray did not show any significant abnormality, I believe the patient will have some fluid in his abdomen but he is in no respiratory distress at this time believe this could be done outpatient 09/01/17 21:32 CT abdomen pelvis did not note any ascites, he does note a pneumonia which would be consistent with the patient's presentation, patient will be given IV antibiotics here, I did speak with the patient's primary care physician he believes patient is stable for discharge, I will discharge her with extremely close follow-up family is happy with this plan Dr. Costa request to increase the lactulose 09/01/17 21:34 09/01/17 21:36 After performing a Medical Screening Examination, I estimate there is LOW risk for ACUTE CORONARY SYNDROME, PULMONARY EMBOLI, RESPIRATORY FAILURE, SEPSIS OR MENINGITIS, thus I consider the discharge disposition reasonable. I have reevaluated this patient multiple times and no significant life threatening changes are noted. The patient and I have discussed the diagnosis and risks, and we agree with discharging home with close follow-up. We also discussed returning to the Emergency Department immediately if new or worsening symptoms occur. We have discussed the symptoms which are most concerning (e.g., changing or worsening pain, trouble swallowing or breathing, neck stiffness, fever) that necessitate immediate return. - Vital Signs Vital signs: Temp Pulse Resp BP Pulse Ox 98.3 F 73 20 129/68 H 95 09/01/17 17:22 09/01/17 17:22 09/01/17 17:22 09/01/17 17:22 09/01/17 17:22 - Laboratory Result Diagrams: 09/01/17 18:35 09/01/17 18:35 Laboratory results interpreted by me: 09/01/17 09/01/17 09/01/17 18:35 18:35 18:37 RDW 15.1 H Plt Count 106 L Glucose 269 H AST 87 H ALT 92 H Alkaline Phosphatase 178 H Ammonia Urine Glucose (UA) >=500 H Urine Ketones TRACE H Urine Blood SMALL H Urine Urobilinogen 4.0 H 09/01/17 20:46 RDW Plt Count Glucose AST ALT Alkaline Phosphatase Ammonia 56.6 H Urine Glucose (UA) Urine Ketones Urine Blood Urine Urobilinogen Discharge - Discharge Clinical Impression: LLL pneumonia Qualifiers: Pneumonia type: due to unspecified organism Qualified Code(s): J18.1 - Lobar pneumonia, unspecified organism Condition: Stable Disposition: HOME, SELF-CARE Instructions: Pneumonia ([facility]) Additional Instructions: For the next 3 days the mL's of lactulose 3 times a day instead of twice a day Return immediately if there are any other concerns Prescriptions: Levofloxacin [Levaquin 750 mg Tablet] 750 mg PO DAILY #5 tablet Referrals: LISSY COSTA MD [Primary Care Provider] - Follow up as needed
--- NOTE | 2017-09-01 21:20 | RADIOLOGY REPORT (SQ) ---
EXAM DESCRIPTION: CT ABD/PELVIS WITH IV ONLY COMPLETED DATE/TIME: 09/01/2017 9:05 pm REASON FOR STUDY: abd pain distension COMPARISON: 06/20/2017 TECHNIQUE: CT scan of the abdomen and pelvis performed using helical scanning technique with dynamic intravenous contrast injection. No oral contrast. Images reviewed with lung, soft tissue, and bone windows. Reconstructed coronal and sagittal MPR images reviewed. Delayed images for evaluation of the urinary system also acquired. All images stored on PACS. All CT scanners at this facility use dose modulation, iterative reconstruction, and/or weight based d osing when appropriate to reduce radiation dose to as low as reasonably achievable (ALARA). [facility]: Dose Right [facility]: CareDose [facility]: Dose Right [facility]: Teradose 4D [facility]: Anexon CONTRAST TYPE AND DOSE: contrast/concentration: Isovue 370.00 mg/ml; Total Contrast Delivered: 100.0 ml; Total Saline Delivered: 45.0 ml RENAL FUNCTION: GFR > 60. RADIATION DOSE: CT Rad equipment meets quality standard of care and radiation dose reduction techniq ues were employed. CTDIvol: 20.8 - 21.1 mGy. DLP: 2319 mGy-cm.. LIMITATIONS: None. FINDINGS: LOWER CHEST: Left lower lobe airspace disease- subsegmental atelectasis. LIVER: Normal size. Similar nodular contour. No masses identified. No dilated ducts. SPLEEN: Normal size. No focal lesions. PANCREAS: No masses. No significant calcifications. No adjacent inflammation or peripancreatic fluid collections. Pancreatic duct not dilated. GALLBLADDER: Layering gallbladder sludge. No calcified stones identified. ADRENAL GLANDS: No significant masses or asymmetry. RIGHT KIDNEY AND URETER: No solid masses. No significant calcifications. No hydronephrosis or hyd roureter. LEFT KIDNEY AND URETER: No solid masses. No significant calcifications. No hydronephrosis or hydr oureter. AORTA AND VESSELS: Few scattered upper abdominal varices. No aneurysm. No dissection. Renal arteries , SMA, celiac without stenosis. RETROPERITONEUM: No retroperitoneal adenopathy, hemorrhage or masses. BOWEL AND PERITONEAL CAVITY: No masses or inflammatory changes. No free fluid or peritoneal masses. APPENDIX: Not visualized. PELVIS: No mass. No free fluid. Normal bladder. ABDOMINAL WALL: No masses. No hernias. BONES: No acute findings. OTHER: No other significant finding. IMPRESSION: Left lower lobe airspace disease- subsegmental atelectasis.NO ACUTE FINDING IN THE ABDOM EN OR PELVIS ON CT SCAN WITH IV CONTRAST. TECHNICAL DOCUMENTATION: JOB ID: [id number] [place]-72 Quality ID # [id number]: Final reports with documentation of one or more dose reduction techniques (e.g., Au tomated exposure control, adjustment of the mA and/or kV according to patient size, use of iterative reconstruction technique) 2010 [employer]- All Rights Reserved Reading location - IP/workstation name: [employer]
[2017-09-01] MEDS ORDERED: CEFTRIAXONE INJ 1000 MG VIAL IV ONE (21:21)
[2017-09-01 22:53] VITALS: BP 128/77
--- NOTE | 2017-09-01 23:13 | EKG REPORT ---
SEVERITY:- ABNORMAL ECG - SINUS RHYTHM RBBB AND LAFB : Confirmed by: Sveta Whitlock 01-Sep-2017 23:13:04
== END 2017-09-01 22:35 | disposition home or self-care (01) ==
LOC: ER 17:12
DX: J18.1 Lobar pneumonia, unspecified organism (principal); J44.0 Chronic obstructive pulmonary disease with (acute) lower respiratory infection; R06.02 Shortness of breath; R05 Cough; I10 Essential (primary) hypertension; E11.9 Type 2 diabetes mellitus without complications; R14.0 Abdominal distension (gaseous); Z87.19 Personal history of other diseases of the digestive system; Z79.899 Other long term (current) drug therapy
CPT/HCPCS: 93005; 99285; 96365; 36415; 87040; 82140; 83690; 85025; 80053; 81001; 84484; 83880; 71046; 74177; 93010; J0696

== ENCOUNTER 2017-09-18 17:53 | Emergency (ER) | payer MEDICARE, OTHER ==
[2017-09-18] MEDS ORDERED: ASPIRIN 81 MG TABLET, CHEWABLE PO ONE (18:24)
[2017-09-18 18:51] LABS: ABSOLUTE EOSINOPHILS # (AUTO) 0.3 10^3/uL (0.0-0.6); ABSOLUTE LYMPHOCYTES (AUTO) 1.1 10^3/uL (0.5-4.7); ABSOLUTE MONOCYTES (AUTO) 0.5 10^3/uL (0.1-1.4); ABSOLUTE NEUT (AUTO) 3.4 10^3/uL (1.7-8.2); BASOPHILS % (AUTO) 0.4 % (0-2); EOSINOPHILS % (AUTO) 5.8 % (0-6); HEMATOCRIT 43.8 % (37.9-51.0); LYMPHOCYTES % (AUTO) 21.4 % (13-45); MEAN CORPUSCULAR HEMOGLOBIN 30.2 pg (27.0-33.4); MEAN CORPUSCULAR HGB CONC 34.2 g/dL (32.0-36.0); MEAN CORPUSCULAR VOLUME 88 fl (80-97); MONOCYTES % (AUTO) 8.5 % (3-13); PLATELET COUNT 104 10^3/uL (150-450); RED BLOOD COUNT 4.97 10^6/uL (4.35-5.55); RED CELL DISTRIBUTION WIDTH 14.7 % (11.5-14.0); SEGMENTED NEUTROPHILS % (AUTO) 63.9 % (42-78); TOTAL CELLS COUNTED % (AUTO) 100 %; WHITE BLOOD COUNT 5.4 10^3/uL (4.0-10.5)
--- NOTE | 2017-09-18 18:52 | ER Document Report ---
ED Medical Screen (RME) - General Chief Complaint: Abdominal Pain Stated Complaint: HEADACHE,ABDOMINAL PAIN Time Seen by Provider: 09/18/17 18:12 Notes: 72-year-old male with a history of stage IV cirrhosis presents emergency department with multiple complaints. Patient complains of a headache that has been going on intermittently for the past months but has worsened and become constant over the past 5 days associated with blurry vision and confusion. Patient also complains of having been diagnosed with pneumonia a few weeks ago, states he was feeling better but is now feeling worse again and having increasing coughing and shortness of breath. Also complains of pain radiating to his bilateral shoulders and between his shoulder blades. Also complains of diarrhea. States it was bad a few weeks ago but then got better and is now getting worse again. Patient is aware that the lactulose he takes for his cirrhosis could be causing this but is also concerned because he was been exposed to C. difficile recently TRAVEL OUTSIDE OF THE [place] IN LAST 30 DAYS: No - Related Data Allergies/Adverse Reactions: No Known Allergies Allergy (Verified 02/08/17 10:52) Past Medical History - General Information source: Patient - Social History Chew tobacco use (# tins/day): No Frequency of alcohol use: None Drug Abuse: None - Past Medical History Cardiac Medical History: Reports: Hx Hypercholesterolemia, Hx Hypertension Pulmonary Medical History: Reports: Hx Bronchitis, Hx COPD, Hx Pneumonia Endocrine Medical History: Reports: Hx Diabetes Mellitus Type 2 Renal/ Medical History: Denies: Hx Peritoneal Dialysis GI Medical History: Reports: Hx Cirrhosis - fatty Musculoskeltal Medical History: Reports Hx Arthritis - fibromyalgia low back pain Lrotator cuff Psychiatric Medical History: Reports: Hx Depression Past Surgical History: Reports: Hx Appendectomy, Hx Orthopedic Surgery - Rknee orifLelbow, Hx Rectal Surgery - hemorrhoidectomy - Immunizations Hx Diphtheria, Pertussis, Tetanus Vaccination: Yes Review of Systems - Review of Systems Constitutional: Malaise Respiratory: Cough Gastrointestinal: See HPI Physical Exam - Vital signs Vitals: Temp Pulse Resp BP Pulse Ox 98.0 F 79 22 H 152/68 H 94 09/18/17 18:02 09/18/17 18:02 09/18/17 18:02 09/18/17 18:02 09/18/17 18:02 - Notes Notes: Morbidly obese, dry cough, no evidence of shortness of breath, lungs are clear to auscultation bilaterally. Abdomen has a fluid wave but is nontender to palpation. Bilateral shoulders are tender to palpation. Course - Vital Signs Vital signs: Temp Pulse Resp BP Pulse Ox 98.0 F 79 22 H 152/68 H 94 09/18/17 18:02 09/18/17 18:02 09/18/17 18:02 09/18/17 18:02 09/18/17 18:02 Doctor's Discharge - Discharge Referrals: LISSY COSTA MD [Primary Care Provider] - Follow up as needed
[2017-09-18 18:58] LABS: INTERNATIONAL RATION (INR) 1.12
[2017-09-18 18:59] LABS: PARTIAL THROMBOPLASTIN TIME 32.6 SEC (23.5-35.8)
[2017-09-18 19:08] LABS: ALANINE AMINOTRANSFERASE 75 U/L (21-72); ALBUMIN 4.1 g/dL (3.5-5.0); ALKALINE PHOSPHATASE 152 U/L (38-126); ANION GAP 14 (5-19); ASPARTATE AMINO TRANSFERASE 85 U/L (17-59); BILIRUBIN,DIRECT 0.4 mg/dL (0.0-0.4); BILIRUBIN,TOTAL 0.9 mg/dL (0.2-1.3); BLOOD UREA NITROGEN 18 mg/dL (7-20); CALCIUM 9.4 mg/dL (8.4-10.2); CARBON DIOXIDE 27 mmol/L (22-30); CHLORIDE 95 mmol/L (98-107); CREATINE KINASE 56 U/L (55-170); GLUCOSE 237 mg/dL (75-110); POTASSIUM 5.2 mmol/L (3.6-5.0); SODIUM 136.2 mmol/L (137-145); TOTAL PROTEIN 7.6 g/dL (6.3-8.2)
[2017-09-18 19:17] LABS: CREATINE KINASE MB 0.24 ng/mL (<4.55)
[2017-09-18 19:22] LABS: TROPONIN I < 0.012 ng/mL
[2017-09-18] MEDS ORDERED: DIPHENHYDRAMINE HCL 50 MG/ML VIAL IV ONE (19:23)
[2017-09-18] MEDS ORDERED: METOCLOPRAMIDE HCL INJ/PF 10 MG/2 ML SDV IV ONE (19:23)
[2017-09-18] MEDS ORDERED: ACETAMINOPHEN 325 MG TABLET PO ONE (19:23)
[2017-09-18] MEDS ORDERED: NORMAL SALINE 500 ML IV ONE (19:23)
--- NOTE | 2017-09-18 19:24 | RADIOLOGY REPORT (SQ) ---
EXAM DESCRIPTION: CT HEAD WITHOUT COMPLETED DATE/TIME: 09/18/2017 7:03 pm REASON FOR STUDY: cough, SOB COMPARISON: None. TECHNIQUE: Axial images acquired through the brain without intravenous contrast. Images reviewed wi th bone, brain and subdural windows. Additional sagittal and coronal reconstructions were generated. Images stored on PACS. All CT scanners at this facility use dose modulation, iterative reconstruction, and/or weight based d osing when appropriate to reduce radiation dose to as low as reasonably achievable (ALARA). [facility]: Dose Right [facility]: CareDose [facility]: Dose Right [facility]: Teradose 4D [facility]: [facility] RADIATION DOSE: CT Rad equipment meets quality standard of care and radiation dose reduction techniq ues were employed. CTDIvol: 53.2 mGy. DLP: 991 mGy-cm. mGy. LIMITATIONS: None. FINDINGS: VENTRICLES: Normal size and contour. CEREBRUM: No masses. No hemorrhage. No midline shift. No evidence for acute infarction. Few scatte red areas of low density in the white matter most likely chronic small vessel ischemic changes. CEREBELLUM: No masses. No hemorrhage. No alteration of density. No evidence for acute infarction. EXTRAAXIAL SPACES: No fluid collections. No masses. ORBITS AND GLOBE: No intra- or extraconal masses. Normal contour of globe without masses. CALVARIUM: No fracture. PARANASAL SINUSES: No fluid or mucosal thickening. SOFT TISSUES: No mass or hematoma. OTHER: No other significant finding. IMPRESSION: No acute findings. Minimal age-appropriate hemispheric small vessel ischemic change. EVIDENCE OF ACUTE STROKE: NO. COMMENT: Quality ID # 436: Final reports with documentation of one or more dose reduction techniques (e.g., Automated exposure control, adjustment of the mA and/or kV according to patient size, use of iterative reconstruction technique) TECHNICAL DOCUMENTATION: JOB ID: [id number] [employer]- All Rights Reserved Reading location - IP/workstation name: [email or web address]
--- NOTE | 2017-09-18 19:25 | RADIOLOGY REPORT (SQ) ---
EXAM DESCRIPTION: CHEST SINGLE VIEW COMPLETED DATE/TIME: 09/18/2017 6:59 pm REASON FOR STUDY: cough, SOB COMPARISON: 09/01/2017 EXAM PARAMETERS: NUMBER OF VIEWS: One view. TECHNIQUE: Single frontal radiographic view of the chest acquired. RADIATION DOSE: NA LIMITATIONS: [employer]- RPO positioning. FINDINGS: LUNGS AND PLEURA: No acute opacities, masses or pneumothorax. Similar chronic interstitia l changes. No pleural effusion. MEDIASTINUM AND HILAR STRUCTURES: Stable for technique. HEART AND VASCULAR STRUCTURES: Stable for technique. BONES: No acute findings. HARDWARE: None in the chest. OTHER: No other significant finding. IMPRESSION: NO ACUTE RADIOGRAPHIC FINDING IN THE CHEST. TECHNICAL DOCUMENTATION: JOB ID: [id number] [place]-72 2010 [employer]- All Rights Reserved Reading location - IP/workstation name: [email or web address]
--- NOTE | 2017-09-18 20:45 | RADIOLOGY REPORT (SQ) ---
EXAM DESCRIPTION: CTA CHEST COMPLETED DATE/TIME: 09/18/2017 8:30 pm REASON FOR STUDY: sob COMPARISON: 11/19/2009 TECHNIQUE: CT scan of the chest performed using helical scanning technique with dynamic intravenous contrast injection. Images reviewed with lung, soft tissue and bone windows. Reconstructed coronal and sagittal MPR images reviewed. Additional 3 dimensional post-processing performed to develop Maximal Intensity Projection images (DE P). All images stored on PACS. All CT scanners at this facility use dose modulation, iterative reconstruction, and/or weight based d osing when appropriate to reduce radiation dose to as low as reasonably achievable (ALARA). [facility]: Dose Right [facility]: CareDose [facility]: Dose Right [facility]: Teradose 4D [facility]: [employer] CONTRAST TYPE AND DOSE: contrast/concentration: Isovue 350.00 mg/ml; Total Contrast Delivered: 85.0 ml; Total Saline Delivered: 110.0 ml Contrast bolus not optimized for the pulmonary arteries. RENAL FUNCTION: GFR > 60. RADIATION DOSE: CT Rad equipment meets quality standard of care and radiation dose reduction techniq ues were employed. CTDIvol: 33.1 - 34.5 mGy. DLP: 1389 mGy-cm. . LIMITATIONS: None. FINDINGS: LUNGS AND PLEURA: No pneumothorax. Small areas of patchy reticulonodular- airspace disea se in the left lower lobe. No pleural effusion. AORTA AND GREAT VESSELS: No aneurysm. Contrast bolus not optimized for the aorta. HEART: No pericardial effusion. Moderate coronary artery calcifications. PULMONARY ARTERIES: No emboli visualized in the main pulmonary arteries or the segmental branches. HILAR AND MEDIASTINAL STRUCTURES: No identified masses or abnormal nodes. HARDWARE: None in the chest. UPPER ABDOMEN: No acute findings. Findings consistent with cirrhosis and portal hypertension. No fr ee fluid identified. Limited exam. THYROID AND OTHER SOFT TISSUES: No masses. No adenopathy. BONES: No acute finding. 3D MIPS: Confirm above findings. OTHER: No other significant finding. IMPRESSION: No emboli visualized in the main pulmonary arteries or the segmental branches.Small area s of patchy reticulonodular- airspace disease in the left lower lobe. No pleural effusion. COMMENT: Quality ID # [id number]: Final reports with documentation of one or more dose reduction techniques (e.g., Automated exposure control, adjustment of the mA and/or kV according to patient size, use of iterative reconstruction technique) TECHNICAL DOCUMENTATION: JOB ID: [id number] [place]-72 2010 [employer]- All Rights Reserved Reading location - IP/workstation name: [email or web address]
--- NOTE | 2017-09-18 21:29 | ER Document Report ---
ED General - General Chief Complaint: Abdominal Pain Stated Complaint: HEADACHE,ABDOMINAL PAIN Time Seen by Provider: 09/18/17 18:12 Mode of Arrival: Ambulatory Information source: Patient Notes: This is a 72-year-old man with a history of cirrhosis, pneumonia, obstructive sleep apnea, COPD who presents to the emergency room with nausea, diarrhea, headache 1 week. Patient has had subjective chills. He does have some shortness of breath. He does state that he had pneumonia 2 weeks ago. He is concerned that he may have pneumonia again. TRAVEL OUTSIDE OF THE [place] IN LAST 30 DAYS: No - HPI Onset: Last week Onset/Duration: Gradual Quality of pain: No pain Severity: None Pain Level: Denies Associated symptoms: Nonproductive cough, Diarrhea, Nausea, Shortness of breath , Weakness Exacerbated by: Denies Relieved by: Denies Similar symptoms previously: Yes Recently seen / treated by doctor: Yes - Related Data Allergies/Adverse Reactions: No Known Allergies Allergy (Verified 09/18/17 20:30) Past Medical History - General Information source: Patient - Social History Smoking Status: Former Smoker Cigarette use (# per day): No Chew tobacco use (# tins/day): No Frequency of alcohol use: None Drug Abuse: None Lives with: Family Family History: DM, Hypertension, Malignancy Patient has suicidal ideation: No Patient has homicidal ideation: No - Past Medical History Cardiac Medical History: Reports: Hx Hypercholesterolemia, Hx Hypertension Pulmonary Medical History: Reports: Hx Bronchitis, Hx COPD, Hx Pneumonia Endocrine Medical History: Reports: Hx Diabetes Mellitus Type 2 Renal/ Medical History: Denies: Hx Peritoneal Dialysis GI Medical History: Reports: Hx Cirrhosis - fatty Musculoskeletal Medical History: Reports Hx Arthritis - fibromyalgia low back pain Lrotator cuff Psychiatric Medical History: Reports: Hx Depression Past Surgical History: Reports: Hx Appendectomy, Hx Orthopedic Surgery - Rknee orifLelbow, Hx Rectal Surgery - hemorrhoidectomy - Immunizations Hx Diphtheria, Pertussis, Tetanus Vaccination: Yes Review of Systems - Review of Systems Constitutional: Fever - Subjective fever, Weakness EENT: No symptoms reported Cardiovascular: denies: Chest pain, Palpitations, Heart racing Respiratory: Cough, Short of breath Gastrointestinal: Diarrhea, Nausea. denies: Abdominal pain, Vomiting Genitourinary: No symptoms reported Male Genitourinary: No symptoms reported Musculoskeletal: No symptoms reported Skin: No symptoms reported Hematologic/Lymphatic: No symptoms reported Neurological/Psychological: No symptoms reported Physical Exam - Vital signs Vitals: Temp Pulse Resp BP Pulse Ox 98.0 F 79 22 H 152/68 H 94 09/18/17 18:02 09/18/17 18:02 09/18/17 18:02 09/18/17 18:02 09/18/17 18:02 Notes: Physical exam: GENERAL: 72-year-old man, alert and oriented 3, no acute distress, appears mildly dehydrated. HEAD: Atraumatic, normocephalic. EYES: Pupils equal round and reactive to light, extraocular movements intact, sclera anicteric, conjunctiva are normal. ENT: TMs normal, nares patent, oropharynx clear without exudates. dry mucous membranes. NECK: Normal range of motion, supple without obvious mass or JVD. LUNGS: Breath sounds clear to auscultation bilaterally and equal. No wheezes rales or rhonchi. HEART: Regular rate and rhythm without murmurs, rubs or gallops. ABDOMEN: Soft, normoactive bowel sounds. No tenderness to palpation. No guarding, no rebound. No masses appreciated. EXTREMITIES: Normal range of motion, no pitting or edema. No clubbing or cyanosis. NEUROLOGICAL: Cranial nerves II through XII grossly intact. Normal speech, moving all extremities. PSYCH: Normal mood, normal affect. SKIN: Warm, Dry, normal turgor, no rashes or lesions noted. Course - Re-evaluation Re-evalutation: 09/18/17 23:18 Note: On repeat assessment, the patient is feeling a little bit better after fluids. He does feel weak. His oxygen saturation is 97% on room air. I did discuss the case with Dr. Costa (patient's presenting symptoms and complaints, CT findings, labs) who felt the patient could be discharged with follow-up in his office in the morning. The plan will be to start him on some oral antibiotics and have him seen Dr. Costa in the morning. Patient has been having diarrhea after the antibiotics but has had no bowel movements in the ER. 09/19/17 00:01 - Vital Signs Vital signs: Temp Pulse Resp BP Pulse Ox 98.9 F 73 15 122/74 97 09/19/17 00:23 09/18/17 19:50 09/19/17 00:13 09/19/17 00:13 09/19/17 00:13 - Laboratory Result Diagrams: 09/18/17 18:32 09/18/17 18:32 Laboratory results interpreted by me: 09/18/17 09/18/17 18:32 18:32 RDW 14.7 H Plt Count 104 L Sodium 136.2 L Potassium 5.2 H Chloride 95 L Glucose 237 H AST 85 H ALT 75 H Alkaline Phosphatase 152 H - Diagnostic Test Radiology reviewed: Image reviewed, Reports reviewed - Chest x-ray shows no infiltrates. CTA shows no pulmonary emboli. CT does show left airspace disease (it is unclear whether this is a new infiltrate or residual effects from previous pneumonia). Discharge - Discharge Clinical Impression: Pneumonia Condition: Stable Disposition: HOME, SELF-CARE Additional Instructions: As we discussed, the CT showed possible left lower pneumonia. Sometimes it takes several weeks before the CT scan and x-rays improve after pneumonia. So this is possible that this is residual effects from the prior pneumonia. Because you are feeling like you are having fever again and shortness of breath , we will treat you as if this is a new finding. I spoke with Dr. Costa this evening and he does want to see you in the office tomorrow. Take the antibiotics as prescribed. Return to the ER for worsening shortness of breath, worsening weakness, not tolerating the antibiotics are concerns you are getting worse. I prescribed some Zofran for nausea. Prescriptions: Doxycycline Hyclate 100 mg PO BID #20 capsule Ondansetron HCl [Zofran 4 mg Tablet] 1 - 2 tab PO Q4H PRN #10 tablet PRN Reason: Referrals: LISSY COSTA MD [Primary Care Provider] - Follow up tomorrow (Call the office first thing in the morning and the sliver cutter that the ER doctor had spoken to Dr. Costa and Dr. Hidalgo wanted to see you tomorrow.)
[2017-09-18] MEDS ORDERED: NORMAL SALINE 1000 ML 1,000 ML IV ONE (21:37)
[2017-09-18] MEDS ORDERED: DOXYCYCLINE HYCLATE 100 MG TABLET PO ONE (21:50)
--- NOTE | 2017-09-18 23:52 | EKG REPORT ---
SEVERITY:- ABNORMAL ECG - SINUS RHYTHM RBBB AND LAFB : Confirmed by: Sveta Whitlock 18-Sep-2017 23:51:33
[2017-09-19 00:23] VITALS: BP 122/74
== END 2017-09-19 00:23 | disposition home or self-care (01) ==
LOC: ER 17:53
DX: J18.9 Pneumonia, unspecified organism (principal); J44.0 Chronic obstructive pulmonary disease with (acute) lower respiratory infection; R11.0 Nausea; R19.7 Diarrhea, unspecified; R51 Headache; R06.02 Shortness of breath; R68.83 Chills (without fever); R05 Cough; R53.1 Weakness; I10 Essential (primary) hypertension; E11.9 Type 2 diabetes mellitus without complications; Z87.19 Personal history of other diseases of the digestive system; Z87.891 Personal history of nicotine dependence; Z90.49 Acquired absence of other specified parts of digestive tract
CPT/HCPCS: 93005; 99285; 96361; 96374; 96375; 36415; 82553; 82140; 82550; 85025; 85610; 85730; 80053; 84484; 71045; 70450; 71275; 93010; A9270 ×3; J1200; J2765; J7040